=== PATIENT | male | born 1965 | race Caucasian/White ===

== ENCOUNTER 2019-06-02 01:54 | Inpatient (IN) ==
[2019-06-02] MEDS ORDERED: ONDANSETRON INJ 2 MG/ML 2 ML VIAL IV STA (03:09)
[2019-06-02] MEDS: HYDROmorphone INJ 1 MG/ML SYRINGE IV PRN (03:15)
[2019-06-02 03:18] LABS: Hemoglobin 13.1 g/dL (14.0-18.0); Mean Corpuscular Hemoglobin 25.9 pg (25-34); Mean Corpuscular Hgb Conc 32.8 g/dL (32-36); Mean Corpuscular Volume 79.2 fL (80-100); Mean Platelet Volume 11.2 fL (7.4-10.4); Platelet Count 171 K/uL (130-400); RDW Coefficient of Variation 14.5 % (11.5-14.5); RDW Standard Deviation 41.3 fL (36.4-46.3); Red Blood Count 5.05 M/uL (4.7-6.1)
[2019-06-02] MEDS: LACTATED RINGER'S 1,000 ML IV SCH ×3 (03:19→22:03)
[2019-06-02] MEDS ORDERED: ONDANSETRON INJ 2 MG/ML 2 ML VIAL IV PRN (03:19)
[2019-06-02 03:28] LABS: INR 1.1 (0.9-1.1); Prothrombin Time 10.8 Seconds (9.0-12.0)
[2019-06-02 03:37] LABS: BUN Creatinine Ratio 8.9 (10-20); Blood Urea Nitrogen 9 mg/dl (7-18); Calcium 8.9 mg/dl (8.5-10.1); Carbon Dioxide 24 mmol/L (21-32); Chloride 104 mmol/L (98-107); Est GFR (African American) 95.5; Est GFR (Non-African American) 82.4; Glucose 147 mg/dl (70-99); Potassium 3.7 mmol/L (3.5-5.1); Sodium 136 mmol/L (136-145)
--- NOTE | 2019-06-02 05:11 | Emergency Department Note ---
Entered by Paulino Srinivasan acting as a scribe for History of Present Illness General Chief complaint: Ankle Pain Stated complaint: ANKLE INJURY Time Seen by Provider: 06/02/19 02:00 Source: patient History of Present Illness Onset (ago): day(s) (this morning) Location: ankle (right) Pain Consistency: + constant Maximum Pain Intensity: 9 Associated symptoms: + other (Negative for knee pain, head pain, and neck pain.) The patient is a 54 year old male who presents to the emergency department with complaints of constant right ankle pain beginning this morning. Per , the patient was drinking alcohol tonight. The patient states that he had 8-12 draft beers tonight. He notes that the last beer that he had was an hour and a half ago and he reports that he last ate at 1700 yesterday. The patient states that the patient tripped and fell outside this morning, injuring his right ankle. He notes that he did not hit his head when he fell. He denies any knee pain, head pain, and neck pain. He reports that he has a history of diabetes and hypertension, and he states that he does not take any blood thinners. Home Medications Home Medications Medication Instructions Recorded Confirmed Type metformin 500 mg tablet,extended 2,000 mg PO QAM 90 Days #360 tab 01/02/19 06/02/19 Rx release 24 hr aspirin 81 mg tablet 81 mg PO DAILY tab 02/08/19 06/02/19 History omega-3 fatty acids 1,000 mg 1,000 mg PO QAM cap 02/08/19 06/02/19 History capsule pantoprazole 40 mg tablet,delayed 40 mg PO DAILY #90 tab 04/23/19 06/02/19 Rx release acyclovir 200 mg capsule 400 mg PO DAILY #60 cap 05/03/19 06/02/19 Rx enalapril maleate 5 mg tablet 5 mg PO DAILY #90 tab 05/07/19 06/02/19 Rx Allergies Allergy/AdvReac Type Severity Reaction Status Date / Time No Known Allergies Allergy Unknown Verified 01/29/04 17:07 [id number] Allergy Unknown Uncoded 08/22/02 20:19 Past Med/Surg History Medical History (Updated 06/02/19 @ 05:11 by Paulino Srinivasan) Diabetes Hypertension Right shoulder injury (Acute) Family History (Updated 01/31/19 @ 10:14 by Jax Mcdonald) Mother Myocardial infarction Diabetes Brother Diabetes Grandfather Diabetes Social History (Updated 01/31/19 @ 10:14 by Jax Mcdonald) Preferred Language: Irish Communication Ability: Effective Delivery Director Required: No Beliefs That Will Affect Care: None Current Living Situation: Spouse Other Information That Helps Us Care for You: No Feels Safe at Home: Yes Safety Concerns: Feels Safe At This Time Smoking Status: Never smoker Hx Alcohol Use: Yes Alcohol type: beer and hard liquor Review of Systems See HPI for pertinent positives & negatives. and A total of 10 systems reviewed and were otherwise negative Physical Exam Vital Signs Vital Signs - 24 hr 06/02/19 01:57 Temperature 36.6 C Temperature Source Oral Pulse Rate 104 H Respiratory Rate 20 Respiratory Depth Normal Blood Pressure 141/95 H Blood Pressure Mean 110 Pulse Oximetry 94 Oxygen Delivery Method Room Air Sepsis Recent Fever Within 48 Hours No Sepsis New/Unexplained Change in Mental Status No Sepsis Action Taken by Nursing No Action Required HEENT: Head - normocephalic and atraumatic. Pupils are equal, round, and reactive to light. Extraocular eye muscles are intact and sclera are anicteric. Nose - moist nasal mucosa without evidence of trauma or discharge. Mouth - moist buccal mucosa with no trauma to the teeth or signs of malocclusion. Neck: The neck is supple and there is no pain to palpation over the posterior cervical spine and no obvious step-offs or deformities. There is no JVD or tracheal deviation. Chest: There are no signs of deformities, contusions or abrasions to the chest wall. There is no obvious crepitus or paradoxical chest rise. Heart: Regular, rate, and rhythm. There is a normal S1 and S2 with no murmurs, clicks, or gallops appreciated. Lungs: Clear to auscultation bilaterally with no wheezes, rales, or rhonchi. Abdomen: Soft, completely nontender, nondistended, with good bowel sounds. There is no sign of trauma such as contusions, abrasions or penetrations. There are no palpable pulsatile masses or hepatosplenomegaly. There is no guarding, rigidity, or rebound noted. Pelvis: Stable to rock and compression. Extremities: No obvious contusions or edema. There are easily palpable peripheral pulses. Obvious deformity of the distal tib/fib, good sensation in the foot. Neuro: The patient is awake and alert and easily able to follow commands. Muscle strength is 5 out of 5 in all 4 extremities. Otherwise, neuro exam is unrema rkable. Course Course 0202: The patient was evaluated in room A12. His work boots were removed. A complete history and physical exam was performed. The patient declined wanting anything for pain. The patient will have plain films of the right tib-fib and right ankle. 0241: I reevaluated and updated the patient. I went over his X-Ray results. Dr. Rodas was paged. 0247: Upon reevaluation, the patient is stable. I discussed the findings and the treatment plan with the patient. He expresses agreement and understanding. I spoke with Dr. Rodas - Orth[place], [facility] The patient will be evaluated for further treatment. 0310: I reduced the patient's tibia fracture to a better alignment. He had Ortho-Glass splinting material applied. He had good pulses and sensation afterwards. He had an IV lock initiated and labs drawn as above in preparation to go to the OR Consultations Consultation #1: I reviewed the patient's case with Dr. Rodas - Orthopedic Surgery. He will evaluate the patient for further treatment Time: 02:47 Administered Medications Hydromorphone HCl (Dilaudid) 1 mg IV Q6 PRN PRN Reason: Pain Stop: 06/16/19 03:06 Last Admin: 06/02/19 03:15 Dose: 0.5 mg Documented by: [id number] Lactated Ringer's (Lr) 1,000 mls @ 100 mls/hr IV .Q10H KAIN Stop: 07/02/19 03:14 Last Admin: 06/02/19 03:19 Dose: 100 mls/hr Documented by: [id number] Discontinued Medications Ondansetron HCl (Zofran) 4 mg IV Q6 STA Stop: 06/02/19 03:10 Last Admin: 06/02/19 03:21 Dose: Not Given Documented by: [id number] Medical Decision Making Differential Diagnosis Differential diagnoses include: Tib/fib fracture, ankle fracture, and ankle dislocation. Medical Records Attestation: I reviewed the patient's medical records. Home Medications Current Medication List: was personally reviewed by me Laboratory Data Attestation: I reviewed the patient's lab results. Result diagrams: 06/02/19 03:10 06/02/19 03:10 Lab Results 06/02/19 Range/Units 03:10 WBC 8.90 (4.8-10.8) K/uL RBC 5.05 (4.7-6.1) M/uL Hgb 13.1 L (14.0-18.0) g/dL Hct 40.0 L (42-52) % MCV 79.2 L (80-100) fL MCH 25.9 (25-34) pg MCHC 32.8 (32-36) g/dL RDW Std Deviation 41.3 (36.4-46.3) fL RDW Coeff of Carisa 14.5 (11.5-14.5) % Plt Count 171 (130-400) K/uL MPV 11.2 H (7.4-10.4) fL Imaging Data Attestation: I personally reviewed and interpreted this imaging study as follows : My Impression: RIGHT LOWER EXTREMITY DISTAL TIBIA X-RAY: Distal tibia fracture ad distal fibula fracture. RIGHT ANKLE FRACTURE: Distal tibia fracture, no obvious ankle fracture. Blood Pressure Blood Pressure Findings: Elevated blood pressure Blood Pressure Disposition: elevated BP felt to be situational MDM Narrative The patient is a 54 year old male who presents to the emergency department with complaints of constant right ankle pain beginning this morning. The patient suffered a fall while at camp. He states that he slipped in the mud while leaving to go home. He had a tall work boot on his right foot and when he fell he had immediate pain just proximal to that boot in the lower portion of the tib-fib region. X-ray confirms a displaced fracture of the distal tibia and a proximal right fibular fracture. The patient had a moderate amount of alcohol this evening. I discussed the case with Dr. Rodas who will admit the patient to the hospital for further care. In the meantime, he suggested that I reduce the tibia fracture and place into Ortho-Glass splinting material. Impression & Plan Fracture of distal end of right tibia, Fracture of fibula, proximal, Fall, Alcohol intoxication Discharge Plan Visit Data *Final* Discharge Date/Time: 06/02/19 03:32 Chief Complaint: Ankle Pain Stated Complaint: ANKLE INJURY ED Provider: Nenita Domínguez Discharge Problem: Fracture of distal end of right tibia, Fracture of fibula, proximal, Fall, A lcohol intoxication Patient Disposition: Still a Patient Discharge Instructions Interventions: ED Discharge Assessment Last Done: 06/02/19 03:32 Discharge Problem: Fracture of distal end of right tibia Qualifiers: Encounter type: initial encounter Fracture type: closed Fracture morphology: unspecified fracture morphology Qualified Code(s): S82.301A - Unspecified fracture of lower end of right tibia, initial encounter for closed fracture Fracture of fibula, proximal Qualifiers: Encounter type: initial encounter Fracture type: closed Fracture morphology: unspecified fracture morphology Laterality: right Qualified Code(s): S82.831A - Other fracture of upper and lower end of right fibula, initial encounter for closed fracture Fall Qualifiers: Encounter type: initial encounter Qualified Code(s): W19.XXXA - Unspecified fall, initial encounter Alcohol intoxication Qualifiers: Complication of substance-induced condition: uncomplicated Qualified Code(s): F10.920 - Alcohol use, unspecified with intoxication, uncomplicated The scribe's documentation has been prepared under my direction and personally reviewed by me in its entirety. I confirm that the note above accurately reflects all work, treatment, procedures, and medical decision making performed by me.
--- NOTE | 2019-06-02 05:31 | XRay Report ---
XR tibia fibula RT 2V CLINICAL HISTORY: fall trauma. Pain. COMPARISON: None. DISCUSSION: Oblique comminuted fracture distal tibial shaft. There is moderate bony displacement at t he oblique component with hairline none displaced extensions to the distal tibia. There is a fracture of the proximal fibula. There is no evidence for soft tissue swelling. IMPRESSION: 1. Comminuted fracture distal tibial shaft. 2. Oblique fracture proximal fibular shaft. The above report was generated using voice recognition software. It may contain grammatical, syntax or spelling errors. Electronically signed by: Artem Doherty M.D. 06/02/2019 5:30 AM
--- NOTE | 2019-06-02 05:31 | XRay Report ---
XR ankle RT 2V CLINICAL HISTORY: fall pain COMPARISON: None. DISCUSSION: Oblique comminuted fracture of the distal tibial shaft. Hairline linear extension to the inferior aspect of the tibia. The remaining bony structures appear to be intact. Subtalar joint is intact. Moderate soft tissue sam ma IMPRESSION: Comminuted fracture distal tibial shaft as described. The above report was generated using voice recognition software. It may contain grammatical, syntax or spelling errors. Electronically signed by: Artem Doherty M.D. 06/02/2019 5:29 AM
--- NOTE | 2019-06-02 08:40 | History & Physical Report ---
Date of Service June 02, 2019 Assessment & Plan (1) Hypertension: Patient was admitted to my service with a fracture of the distal third right tibia. This was a closed injury neurosensory intact Plan: We will feed the patient today keep him n.p.o. after midnight. I discussed the definitive care with the patient and family he will be scheduled for an IM rodding of the right tibia. We will do the procedure on the at approximately 1 PM in the afternoon. Instructions precautions provided to the patient including time off of work. Present on Admission?: Yes (2) Diabetes: Medical management Present on Admission?: Yes (3) Fracture of distal end of right tibia: IM rodding (4) Alcohol intoxication: Medical management (5) Fall: (6) Fracture of fibula, proximal: (7) Tibia fracture: IM rodding of the right tibia History of Present Illness Patient was out ambulatory hunting trip fell suffered acute injury to his right lower extremity. He was brought in via emergency transport to the emergency room for treatment and stabilization. I was called at approximately 3 AM on the admitted the patient to my service. He had expert care in the emergency room probably splinted and protected Primary Care Provider: Pirece Springer MD Allergies Allergy/AdvReac Type Severity Reaction Status Date / Time No Known Allergies Allergy Unknown Verified 01/29/04 17:07 [id number] Allergy Unknown Uncoded 08/22/02 20:19 Home Medications Home Medications Medication Instructions Recorded Confirmed Type metformin 500 mg tablet,extended 2,000 mg PO QAM 90 Days #360 tab 01/02/19 06/02/19 Rx release 24 hr aspirin 81 mg tablet 81 mg PO DAILY tab 02/08/19 06/02/19 History omega-3 fatty acids 1,000 mg 1,000 mg PO QAM cap 02/08/19 06/02/19 History capsule pantoprazole 40 mg tablet,delayed 40 mg PO DAILY #90 tab 04/23/19 06/02/19 Rx release acyclovir 200 mg capsule 400 mg PO DAILY #60 cap 05/03/19 06/02/19 Rx enalapril maleate 5 mg tablet 5 mg PO DAILY #90 tab 05/07/19 06/02/19 Rx Past Med/Surg History Medical History (Updated 06/02/19 @ 08:38 by Hadley Rodas DO) Diabetes Hypertension Right shoulder injury (Acute) Family History (Updated 01/31/19 @ 10:14 by Jax Mcdonald) Mother Myocardial infarction Diabetes Brother Diabetes Grandfather Diabetes Social History (Updated 01/31/19 @ 10:14 by Jax Mcdonald) Preferred Language: Monegasque Communication Ability: Effective Charge Histotechnologist Required: No Beliefs That Will Affect Care: None Current Living Situation: Spouse Other Information That Helps Us Care for You: No Feels Safe at Home: Yes Safety Concerns: Feels Safe At This Time Smoking Status: Never smoker Hx Alcohol Use: Yes Alcohol type: beer and hard liquor Review of Systems Review of Systems: Denies any fever sweats chills Ear, Nose, Mouth, Throat: Denies any ear nose and throat complaints Denies any chest pain shortness of breath palpitations negative Denies nausea vomiting urgency frequency His only positive review is muscle skeletal lower extremity difficult Physical Exam Physical Exam: Pupils react to light and accommodation. Ear nose and throat clear Lungs clear to auscultation no rales rhonchi wheezing Abdomen soft and nontender. Cardiac normal S1-S2 no S3 Cardiovascular: Normal rate and rhythm with no ectopy Skin: Skin is intact no brachia skin no warmth erythema good circulation Lower extremity well aligned Results & Data Vital Signs (Past 12 Hours) Vital Signs Temp Pulse Pulse Resp BP BP BP 06/02/19 07:50 36.7 C 94 H 18 148/88 H 06/02/19 03:51 36.8 C 95 H 20 148/99 H 06/02/19 03:22 91 H 18 132/90 06/02/19 03:04 97 H 18 175/104 H 06/02/19 01:57 36.6 C 104 H 20 141/95 H Pulse Ox 06/02/19 07:50 95 06/02/19 03:51 96 06/02/19 03:22 93 06/02/19 03:04 96 06/02/19 01:57 94 Code Status & VTE Plan VTE Prophylaxis Plan VTE Prophylaxis will be ordered: No PG Care Time/CCT Total # of Minutes Spent Total Time Spent with Patient: Total time spent is greater than 50% in coordination of care (as documented) at patient's floor/unit and/or counseling patient: (1) Fracture of distal end of right tibia Encounter type: initial encounter Fracture morphology: unspecified fracture morphology Fracture type: closed Qualified Code(s): S82.301A - Unspecified fracture of lower end of right tibia, initial encounter for closed fracture (2) Alcohol intoxication Complication of substance-induced condition: uncomplicated Qualified Code(s): F10.920 - Alcohol use, unspecified with intoxication, uncomplicated (3) Fall Encounter type: initial encounter Qualified Code(s): W19.XXXA - Unspecified fall, initial encounter (4) Fracture of fibula, proximal Encounter type: initial encounter Fracture morphology: unspecified fracture morphology Fracture type: closed Laterality: right Qualified Code(s): S82. 831A - Other fracture of upper and lower end of right fibula, initial encounter for closed fracture
[2019-06-02] MEDS: KETOROLAC 30 MG/ML VIAL IV SCH ×3 (09:23→21:56)
[2019-06-02] MEDS ORDERED: GLUCOSE 40% GEL 15 GM TUBE PO PRN (09:38)
[2019-06-02] MEDS ORDERED: CARBOHYDRATES FOR HYPOGLYCEMIA PO PRN (09:38)
[2019-06-02] MEDS ORDERED: DEXTROSE 50% 50 ML SYRINGE IV PRN (09:38)
[2019-06-02] MEDS ORDERED: GLUCOSE 10 TABS/TUBE PO PRN (09:38)
[2019-06-02] MEDS ORDERED: GLUCAGON FOR INJ 1 MG VIAL SQ PRN (09:38)
[2019-06-02] MEDS ORDERED: ENALAPRIL MALEATE 5 MG TAB PO SCH (09:45)
[2019-06-02] MEDS: OMEGA-3 (PURIFIED FISH OIL) 1 GM CAP PO SCH (10:15)
[2019-06-02] MEDS: ACYCLOVIR 200 MG CAP PO SCH (10:16)
[2019-06-02] MEDS: PANTOprazole 40 MG TAB PO SCH (11:59)
[2019-06-02] MEDS: OXYCODONE/ACETAMINOPHEN 10-325 TAB PO PRN ×2 (12:02→19:56)
[2019-06-02] MEDS: INSULIN ASPART 100 UNITS/ML 3 ML PEN SC SCH ×3 (12:54→21:53)
--- NOTE | 2019-06-02 13:11 | Hospitalist Consultation ---
Date of Consultation June 02, 2019 Assessment & Plan (1) Fracture of distal end of right tibia: * Patient admitted for closed comminuted fracture of distal RIGHT tibia and oblique fracture of proximal fibular shaft following a mechanical fall after consumption of 8-12 beers. * NPO after midnight per ortho service * Scheduled for IM rodding of R tibia on 06/[address] Rodas * Pain management/PT/OT/DVT prophylaxis per primary * IVFs for hydration * Holding aspirin from home * Patient able to climb flight of steps without difficulty; able to achieve 4 METS without chest pain. He has no significant cardiac history and is never had to have a stress test. Diabetes well controlled on metformin alone, no insulin. EKG with occasional PVCs and PACs, without ischemic changes. Carotids without stenosis/bruit on exam. Coagulation studies without abnormality. * Patient is at average perioperative cardiovascular risk for intermediate risk procedure. Acceptable to proceed with planned intervention as above by Ortho. (2) Fracture of fibula, proximal: * As above, orthopedic management (3) Hypertension: * Elevated, but stable at 148/88 * Patient given morning dose of enalapril 5mg -- will hold tonight for OR in AM * Continue to monitor (4) Diabetes: Well-controlled, hemoglobin A1c 6.5% on recent labs With some mild hyperglycemia here secondary to stress reaction -Hold metformin from home -will give supplemental insulin -Accu-Cheks q. before meals at bedtime -ADA diet (5) Alcohol intoxication: * ethyl alcohol 108 on admission -- pt had 8-12 beers day night prior to fall * Patient states he only drinks in excess during hunting season and rarely even on the weekends outside of hunting season - no evidence of etoh withdrawal at this time * Monitor for s/sx of DT (6) Hypertriglyceridemia: * Patient previously on fenofibrate and gemfibrizol, with triglycerides 545 in May 2018 -- patient developed rash and was subsequently taken off these medications * Since that time, patient with increased exercise and dietary changes, improved control diabetes * Most recent lipid profile February 2019 -- triglycerides 193, Cholesterol 155- LDL 89, HDL 39 (7) Anemia: * NEW upon admission with hemoglobin of 13.1, microcytic, down from hemoglobin is 16.5 in 05/2018. MCV 79.2 * Some of the anemia may be from some acute blood loss from the tibial fracture, but could be from a GI source * Had a colonoscopy 6 months ago which was normal, but has significant GERD requiring daily PPI and has symptoms if misses 1 dose-last EGD 6 years ago * Recommend follow-up with GI as an outpatient for repeat EGD to look for source of iron deficiency * Holding aspirin from home for now for surgery-consider stopping upon discharge at least temporarily until source of microcytic anemia is found * Check iron studies in AM, check fecal occult blood * Follow CBC (8) GERD (gastroesophageal reflux disease): * Continue home Protonix 40mg * Needs repeat EGD as above given microcytic anemia upon admission (9) Herpetic mag: * No acute flare * Continue home daily acyclovir (10) DVT prophylaxis: * Per primary Dispo: patient to OR in AM with Dr. Rodas for IM sixto Supervising Physician Co-Signing Physician Notes PA Supervision Note: I personally saw and examined the patient. I verified all anderson points and agree with LISETTE Corral with the following exceptions and/or additions: Patient having pain in the right leg, otherwise feeling well. Denies chest pain ever or with exertion. He is easily able to climb a flight of stairs up and down prior to to his fall and fracture. He has never had any cardiac issues in the past. He has never had to have a stress test. Denies any new pains anywhere else. He has chronic pains in his shoulder on the right from a previous fracture, has chronic neck and back pain. History reviewed as above ROS as above Vitals reviewed Gen: AAOx3, NAD HEENT: Anicteric sclerae, EOMI CV: RRR no mgr nl S1S2 Pulm: CTAB no wcr Abd: +BS soft NT ND no masses or hernias Ext: Right leg in splint, did not remove the splint, good cap refill in the right toes, 2+ dorsalis pedis and posterior tibialis pulse on the left Skin: No rashes, warm/dry Neuro: Full strength throughout 54-year-old male with history as above, here after mechanical fall resulting in right tib/fib fracture that is comminuted -For surgical management tomorrow Medical preoperative assessment as above -We will follow along History of Present Illness Attending Physician: Hadley Rodas, History of Present Illness 54 year old white male with PMH significant for DM, HTN, acid reflux, dyslipidemia, herpetic mag presented with complaints of right ankle pain after being at hunting camp and having between 8-12 beers. He states he tripped this morning but denies head trauma or LOC. He was found in the ER to have a comminuted fracture of the right distal tibial shaft as well as an oblique fracture of the right proximal fibula. He was set in a splint in the ER and admitted by orthopedics. Hospitalist service is consulted for medical management and preoperative medical assessment. He states he has had some upper respiratory congestion for the past two weeks with occasional productive cough of green sputum. His was sick recently, and she states at bedside that her cough and symptoms were fever similar and lasted four weeks. He has been taking sophia seltzer dissolving tablets over the past week without much improvement of symptoms. The patient denies any chest pain or shortness of breath. He states he currently feels warm, but he states he usually sleeps with a fan at night and would like one during his stay as well. They deny having an air conditioner running currently or recent exposure. He denies excessive alcohol use outside of hunting season, and states he might have a beer or two during a months time outside of hunting camp. He does have a significant family history for HTN and DM, with his mother passing at the age of 48 from a massive MO due to complications from diabetes. She also had HTN and kidney disease. The patients brother also has diabetes and has been on insulin since he was 20. His father is still alive and well, but he does not go to the doctor. 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 During that time, he developed recurrent infections in the region of the lateral aspect of his right thumb, which was eventually diagnosed as herpetic mag and placed on daily acyclovir. He states this developed after cleaning up bottle at camp while placing his thumbs in the tops and someone had a cold sore. Allergies Allergy/AdvReac Type Severity Reaction Status Date / Time fenofibrate AdvReac Mild rash Unverified 06/02/19 13:25 gemfibrozil AdvReac Mild rash Unverified 06/02/19 13:25 [id number] Allergy Unknown Uncoded 08/22/02 20:19 Home Medications Home Medications Medication Instructions Recorded Confirmed Type metformin 500 mg tablet,extended 2,000 mg PO QAM 90 Days #360 tab 01/02/19 06/02/19 Rx release 24 hr aspirin 81 mg tablet 81 mg PO DAILY tab 02/08/19 06/02/19 History omega-3 fatty acids 1,000 mg 1,000 mg PO QAM cap 02/08/19 06/02/19 History capsule pantoprazole 40 mg tablet,delayed 40 mg PO DAILY #90 tab 04/23/19 06/02/19 Rx release acyclovir 200 mg capsule 400 mg PO DAILY #60 cap 05/03/19 06/02/19 Rx enalapril maleate 5 mg tablet 5 mg PO DAILY #90 tab 05/07/19 06/02/19 Rx Patient History Medical History Diabetes Dyslipidemia GERD (gastroesophageal reflux disease) Herpetic mag Hypertension Olecranon bursitis Right shoulder injury (Acute) Surgical History History of elbow surgery Family History Mother Myocardial infarction, Onset Age: 48 at age 48 Diabetes Hypertension Kidney disease Brother Diabetes, Onset Age: 20 on insulin Grandfather Diabetes Social History Preferred Language: Chadian Communication Ability: Effective Distribution Analyst Required: No Beliefs That Will Affect Care: None marital status: Current Living Situation: Spouse current occupational status: employed current occupation: 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 miner- 27 years Other Information That Helps Us Care for You: No Feels Safe at Home: Yes Safety Concerns: Feels Safe At This Time Smoking Status: Never smoker Hx Alcohol Use: Yes Alcohol type: beer and hard liquor Alcohol type Comment: typically only increased intake 8-10 beers during hunting season Hx Substance Use: No Review of Systems Constitutional: + fever and + body aches Eyes: no diplopia and no tunnel vision Ear, Nose, Mouth, Throat: no tinnitus, no dizziness and no dysphagia Respiratory: + cough and + chest congestion (white/yellow sputum); no dyspnea and no dyspnea on exertion Cardiovascular: no chest pain, no radiating jaw, neck or arm pain, no palpitations and no edema Gastrointestinal: no abdominal pain, no nausea, no vomiting, no constipation and no diarrhea/loose stools Genitourinary: no dysuria, no hematuria and no flank pain Musculoskeletal: no back pain and no swelling Right ankle pain Integumentary: no rash and no lesions Neurologic: + falls (this morning); no numbness and no paresthesia Psychiatric: no anxiety and no confusion Endocrine: no polydipsia and no polyphagia Hematologic / Lymphatic: no easy bleeding and no coagulopathy Allergy / Immunological: no itchy eyes and no seasonal rhinorrhea Physical Exam Constitutional: WD/WN, vitals as above no acute distress Eyes: PERRL, conjunctivae normal, anicteric sclerae ENMT: posterior pharynx erythema Neck: trachea midline, no thyromegaly Respiratory: normal respiratory effort, lungs clear to auscultation Cardiovascular: RRR, no murmur, no edema Gastrointestinal (Abdomen): normal bowel sounds, soft, nontender, no hepatosplenomegaly Musculoskeletal: no cyanosis or clubbing. Splint to RLE -- sensation intact neurovascularly Skin: no rashes, warm and dry Neurologic: PERRL, EOMI, accommodation nl, no face palsy, no dysarthria Psychiatric: A+Ox3, euthymic affect Lymphatic: no cervical or axillary lymphadenopathy Results & Data Vital Signs (Past 12 Hours) Vital Signs Temp Pulse Pulse Resp BP BP BP 06/02/19 07:50 36.7 C 94 H 18 148/88 H 06/02/19 03:51 36.8 C 95 H 20 148/99 H 06/02/19 03:22 91 H 18 132/90 06/02/19 03:04 97 H 18 175/104 H 06/02/19 01:57 36.6 C 104 H 20 141/95 H Pulse Ox 06/02/19 07:50 95 06/02/19 03:51 96 06/02/19 03:22 93 06/02/19 03:04 96 06/02/19 01:57 94 Laboratory Results 06/02/19 06/02/19 06/02/19 Range/Units 12:53 03:26 03:10 WBC (4.8-10.8) K/uL RBC (4.7-6.1) M/uL Hgb (14.0-18.0) g/dL Hct (42-52) % MCV (80-100) fL MCH (25-34) pg MCHC (32-36) g/dL RDW Std Deviation (36.4-46.3) fL RDW Coeff of Carisa (11.5-14.5) % Plt Count (130-400) K/uL MPV (7.4-10.4) fL PT (9.0-12.0) Seconds INR (0.9-1.1) Sodium (136-145) mmol/L Potassium (3.5-5.1) mmol/L Chloride (98-107) mmol/L Carbon Dioxide (21-32) mmol/L Anion Gap (3-11) BUN (7-18) mg/dl Creatinine (0.6-1.4) mg/dl Est Cr Clr Drug Dosing Est GFR ( Amer) Est GFR (Non-Af Amer) BUN/Creatinine Ratio (10-20) Glucose (70-99) mg/dl POC Glucose 207 H (70-99) Estimat Average Glucose Pending Hemoglobin A1c Pending Calcium (8.5-10.1) mg/dl Ethyl Alcohol mg/dL 108.0 H (0-3) mg/dl 06/02/19 06/02/19 06/02/19 Range/Units 03:10 03:10 03:10 WBC 8.90 (4.8-10.8) K/uL RBC 5.05 (4.7-6.1) M/uL Hgb 13.1 L (14.0-18.0) g/dL Hct 40.0 L (42-52) % MCV 79.2 L (80-100) fL MCH 25.9 (25-34) pg MCHC 32.8 (32-36) g/dL RDW Std Deviation 41.3 (36.4-46.3) fL RDW Coeff of Carisa 14.5 (11.5-14.5) % Plt Count 171 (130-400) K/uL MPV 11.2 H (7.4-10.4) fL PT 10.8 (9.0-12.0) Seconds INR 1.1 (0.9-1.1) Sodium 136 (136-145) mmol/L Potassium 3.7 (3.5-5.1) mmol/L Chloride 104 (98-107) mmol/L Carbon Dioxide 24 (21-32) mmol/L Anion Gap 8.0 (3-11) BUN 9 (7-18) mg/dl Creatinine 1.02 (0.6-1.4) mg/dl Est Cr Clr Drug Dosing Not Reportable Est GFR ( Amer) 95.5 Est GFR (Non-Af Amer) 82.4 BUN/Creatinine Ratio 8.9 L (10-20) Glucose 147 H (70-99) mg/dl POC Glucose (70-99) Estimat Average Glucose Hemoglobin A1c Calcium 8.9 (8.5-10.1) mg/dl Ethyl Alcohol mg/dL (0-3) mg/dl PG Care Time/CCT Total # of Minutes Spent Total Time Spent with Patient: Total time spent is greater than 50% in coordination of care (as documented) at patient's floor/unit and/or counseling patient: (1) Alcohol intoxication Complication of substance-induced condition: uncomplicated Qualified Code(s): F10.920 - Alcohol use, unspecified with intoxication, uncomplicated (2) Fracture of distal end of right tibia Encounter type: initial encounter Fracture morphology: unspecified fracture morphology Fracture type: closed Qualified Code(s): S82.301A - Unspecified fracture of lower end of right tibia, initial encounter for closed fracture (3) Fracture of fibula, proximal Encounter type: initial encounter Fracture morphology: unspecified fracture morphology Fracture type: closed Laterality: right Qualified Code(s): S82.831A - Other fracture of upper and lower end of right fibula, initial encounter for closed fracture
[2019-06-02 15:02] LABS: Basophils # (auto) 0.05 K/uL (0-0.2); Basophils % (auto) 0.5 %; Eosinophils # (auto) 0.11 K/uL (0-0.5); Eosinophils % (auto) 1.1 %; Immature Granulocytes # (auto) 0.06 K/uL (0.00-0.02); Immature Granulocytes % (auto) 0.6 %; Lymphocytes # (auto) 1.43 K/uL (1.2-3.4); Lymphocytes % (auto) 14.7 %; Monocytes % (auto) 8.2 %; Neutrophils % (auto) 74.9 %
--- NOTE | 2019-06-02 15:04 | XRay Report ---
XR chest 1V portable CLINICAL HISTORY: cough x 2 weeks dyspnea COMPARISON STUDY: No previous studies for comparison. FINDINGS: The bones soft tissues and hemidiaphragms are normal. The cardiomediastinal silhouette is n ormal. The lungs are clear. The pulmonary vasculature is normal. IMPRESSION: Negative chest. The above report was generated using voice recognition software. It may contain grammatical, syntax or spelling errors. Electronically signed by: Artem Doherty M.D. 06/02/2019 3:02 PM
[2019-06-03] MEDS: KETOROLAC 30 MG/ML VIAL IV SCH ×4 (02:48→19:28)
[2019-06-03] MEDS ORDERED: Nursing to Pharmacy Communication ONE (03:04)
[2019-06-03 05:50] LABS: Basophils # (auto) 0.04 K/uL (0-0.2); Basophils % (auto) 0.4 %; Eosinophils # (auto) 0.31 K/uL (0-0.5); Eosinophils % (auto) 3.2 %; Hematocrit (blood only) 37.4 % (42-52); Hemoglobin 12.1 g/dL (14.0-18.0); Immature Granulocytes # (auto) 0.05 K/uL (0.00-0.02); Immature Granulocytes % (auto) 0.5 %; Lymphocytes # (auto) 1.91 K/uL (1.2-3.4); Lymphocytes % (auto) 19.5 %; Mean Corpuscular Hemoglobin 26.3 pg (25-34); Mean Corpuscular Hgb Conc 32.4 g/dL (32-36); Mean Corpuscular Volume 81.3 fL (80-100); Mean Platelet Volume 11.8 fL (7.4-10.4); Monocytes # (auto) 1.02 K/uL (0.11-0.59); Monocytes % (auto) 10.4 %; Neutrophils # (auto) 6.48 K/uL (1.4-6.5); Platelet Count 163 K/uL (130-400); RDW Coefficient of Variation 14.8 % (11.5-14.5); RDW Standard Deviation 43.8 fL (36.4-46.3); White Blood Count 9.81 K/uL (4.8-10.8)
[2019-06-03 05:53] LABS: Estimated Average Glucose 146 mg/dl; Hemoglobin A1C 6.7 % (4.5-5.6)
[2019-06-03] MEDS: HYDROmorphone INJ 1 MG/ML SYRINGE IV PRN ×4 (06:00→18:09)
[2019-06-03 06:06] LABS: INR 1.1 (0.9-1.1); Prothrombin Time 10.8 Seconds (9.0-12.0)
[2019-06-03] MEDS: INSULIN ASPART 100 UNITS/ML 3 ML PEN SC SCH ×4 (06:10→21:11)
[2019-06-03 06:17] LABS: BUN Creatinine Ratio 8.6 (10-20); Calcium 8.4 mg/dl (8.5-10.1); Creatinine Clr Calc Pharmacy 103.1 ml/min; Est GFR (African American) 100.2; Est GFR (Non-African American) 86.4; Potassium 3.7 mmol/L (3.5-5.1)
[2019-06-03] MEDS: LACTATED RINGER'S 1,000 ML IV SCH ×3 (07:37→19:35)
[2019-06-03] MEDS ORDERED: HYDROmorphone INJ 1 MG/ML SYRINGE IV PRN (11:29)
--- NOTE | 2019-06-03 13:43 | Hospitalist Progress Note ---
Date of Service June 03, 2019 Assessment & Plan (1) Fracture of distal end of right tibia: - Closed comminuted fx of R distal tibia and oblique fx of proximal fibular shaft due to mechanical fall - Planning on surgical intervention this afternoon with Dr. Rodas - surgical management per primary - ASA on hold Surgical Clearance: Patient able to climb flight of steps without difficulty; able to achieve 4 METS without chest pain. He has no significant cardiac history and has never had to have a stress test. Diabetes well controlled on metformin alone, no insulin. EKG with occasional PVCs and PACs, without ischemic changes. Coagulation studies without abnormality; does have FMHx of mother with fatal OK at 48 - reporting poorly controlled DM contributing * Patient is at average perioperative cardiovascular risk for intermediate risk procedure. Acceptable to proceed with planned intervention as above by Ortho. (2) Fracture of fibula, proximal: - As above, orthopedic management (3) Hypertension: - Mildly elevated but stable - 140 systolics - Enalapril on hold pending surgical intervention; likely can be resumed tomorrow (4) Diabetes: - Well-controlled; A1c 6.5 - Hold Metformin and given SSI; can return on home medications on D/C (5) Alcohol intoxication: - Ethyl alcohol 108 on admission - reports 8-12 beers prior to fall - Denies heavy chronic use - mostly drinks with hunting season - no withdrawal signs (6) Hypertriglyceridemia: - Previously on fenofibrate and gemfibrizol - developed rash on taken on medications - Patient reports increased exercise and dietary changes; has controlled DM - Continued outpatient monitoring (7) Anemia: - Rather new finding in comparison to previous labs - Hgb 12.1 currently and partially some dilution - Possibly this is acute blood loss due to fracture - Had colonoscopy x 6 months ago which was normal; has significant GERD with last EGD 6 years ago - Can F/U with GI for possible repeat EGD as outpatient - labs with low end MCV but it is normal today - iron panel WNL - can be followed as outpatient - Fecal occult blood ordered for testing (8) GERD (gastroesophageal reflux disease): - Continue Protonix 40 mg daily (9) Herpetic mga: - No exacerbation - Continue Acyclovir 400 mg daily (10) DVT prophylaxis: - Per primary pending surgery Disposition: Planning on OR today; hospitalists will continue to follow Subjective Reports feeling well today. Continues to have intermittent pain of his leg. Anticipated surgical intervention around 1:00. Verbalizes no complaints at this time Review of Systems Constitutional: no fever and no chills Respiratory: no cough and no dyspnea Cardiovascular: no chest pain and no palpitations Gastrointestinal: no abdominal pain, no nausea, no vomiting, no constipation and no diarrhea/loose stools Genitourinary: no dysuria Musculoskeletal: R lower leg pain Integumentary: no rash Neurologic: no tingling and no numbness Psychiatric: no anxiety and no substance abuse Physical Exam Constitutional: WD/WN, vitals as above Eyes: + anicteric sclerae ENMT: Ears: no hearing impairment Mouth: oral mucous membranes not dry Neck: trachea midline Respiratory: normal respiratory effort, lungs clear to auscultation Cardiovascular: RRR, no murmur, no edema Gastrointestinal (Abdomen): Inspection/Auscultation: normal bowel sounds Percussion/Palpation: abdomen soft; abdomen nontender Musculoskeletal: Head/Neck/Chest: normocephalic and head atraumatic RLE with splint placed; immediate cap refill Skin: no rashes, warm and dry Neurologic: moves all extremities Psychiatric: A+Ox3, euthymic affect Results & Data Vital Signs (Past 12 Hours) Vital Signs Temp Pulse Resp BP Pulse Ox 06/03/19 11:44 36.7 C 58 L 14 155/90 H 94 06/03/19 07:38 36.9 C 66 14 144/92 H 93 PG Care Time/CCT Total # of Minutes Spent Total Time Spent with Patient: Total time spent is greater than 50% in coordination of care (as documented) at patient's floor/unit and/or counseling patient: (1) Alcohol intoxication Complication of substance-induced condition: uncomplicated Qualified Code(s): F10.920 - Alcohol use, unspecified with intoxication, uncomplicated (2) Fracture of distal end of right tibia Encounter type: initial encounter Fracture morphology: unspecified fracture morphology Fracture type: closed Qualified Code(s): S82.301A - Unspecified fracture of lower end of right tibia, initial encounter for closed fracture (3) Fracture of fibula, proximal Encounter type: initial encounter Fracture morphology: unspecified fracture morphology Fracture type: closed Laterality: right Qualified Code(s): S82.831A - Other fracture of upper and lower end of right fibula, initial encounter for closed fracture
[2019-06-03] MEDS ORDERED: LIDOCAINE HCL 2% 2 ML VIAL/AMP(20MG/ML) INFIL ONE (14:10)
[2019-06-03] MEDS ORDERED: fentaNYL citrate 100 MCG/2 ML VIAL ONE ×3 (14:10→15:32)
[2019-06-03] MEDS ORDERED: PROPOFOL IV EMULSION 10 MG/ML 20 ML VIAL IV ONE (14:10)
[2019-06-03] MEDS ORDERED: MIDAZOLAM HCL 1 MG/ML 2ML VIAL ONE (14:11)
--- NOTE | 2019-06-03 14:21 | History & Physical Bridge Note ---
Date of Service June 03, 2019 History & Physical Bridge Note I have examined the patient, reviewed the History & Physical and in the interval since the performance of the History & Physical I have noted the following changes of clinical significance: no changes noted
--- NOTE | 2019-06-03 14:37 | Anesthesiology Consultation ---
Date of Service June 03, 2019 Assessment & Plan Chart Review Chart Review: Acceptable Risk for Surgery and Patient NOT seen in Pre Admission Testing Consults Requested none ASA ASA3 Proposed Anesthesia Anesthesia Type: General Risk / Benefits Reviewed With: PT / POA / Parent / Guardian, Accepts Plan and Informed Consent Obtained History Surgery Operation Date: 06/03/19 08:20 Proposed Procedures p Right Tibia Intramedullary Nail - Hadley Rodas, Height/Weight Height: 5 ft 9 in Weight: 107.983 kg Allergies Allergy/AdvReac Type Severity Reaction Status Date / Time fenofibrate AdvReac Mild rash Unverified 06/02/19 13:25 gemfibrozil AdvReac Mild rash Unverified 06/02/19 13:25 [id number] Allergy Unknown Uncoded 08/22/02 20:19 Medications Home Medications Medication Instructions Recorded Confirmed Last Taken metformin 500 mg tablet,extended 2,000 mg PO QAM 90 Days #360 tab 01/02/19 06/02/19 Unknown release 24 hr aspirin 81 mg tablet 81 mg PO DAILY tab 02/08/19 06/02/19 Unknown omega-3 fatty acids 1,000 mg 1,000 mg PO QAM cap 02/08/19 06/02/19 Unknown capsule pantoprazole 40 mg tablet,delayed 40 mg PO DAILY #90 tab 04/23/19 06/02/19 Unknown release acyclovir 200 mg capsule 400 mg PO DAILY #60 cap 05/03/19 06/02/19 Unknown enalapril maleate 5 mg tablet 5 mg PO DAILY #90 tab 05/07/19 06/02/19 Unknown Active Medications Generic Name Dose Route Start Last Admin Trade Name Billq PRN Reason Stop Dose Admin Acyclovir 400 mg 06/02/19 09:45 06/02/19 10:16 Zovirax PO 07/02/19 09:44 400 mg DAILY KAIN Administration Enalapril Maleate 5 mg 06/02/19 09:45 06/02/19 10:16 Vasotec PO 07/02/19 09:44 5 mg QAM KAIN Administration Fish Oil 1 gm 06/02/19 10:00 06/02/19 10:15 [place]-3 (Purified Fish Oil) PO 07/02/19 09:59 1 gm QAM KAIN Administration Hydromorphone HCl 1 mg 06/03/19 11:29 06/03/19 11:35 Dilaudid IV 06/16/19 03:06 1 mg Q4 PRN Administration Pain Lactated Ringer's 1,000 mls @ 100 mls/hr 06/02/19 03:15 06/03/19 07:37 Lr IV 07/02/19 03:14 100 mls/hr .Q10H KAIN Administration Insulin Aspart 0 units 06/03/19 06:00 06/03/19 12:11 Novolog Flexpen SC 07/03/19 05:59 Not Given Q6 KAIN Ketorolac Tromethamine 30 mg 06/02/19 09:00 06/03/19 08:35 Toradol IV 06/07/19 08:59 30 mg Q6H KAIN Administration Oxycodone/Acetaminophen 2 tab 06/02/19 08:40 06/02/19 19:56 Percocet 10/325mg PO 06/16/19 08:39 2 tab Q4H PRN Administration Pain Pantoprazole Sodium 40 mg 06/02/19 10:15 06/02/19 11:59 Protonix PO 07/02/19 10:14 40 mg QAM KAIN Administration NPO Date Last Intake of Fluids: 06/02/19 Time Last Intake of Fluids: 23:55 Date Last Intake of Solids: 06/02/19 Time Last Intake of Solids: 17:00 Past Medical History Medical History Diabetes Dyslipidemia GERD (gastroesophageal reflux disease) Herpetic mag Hypertension Olecranon bursitis Right shoulder injury (Acute) Exercise / Class Metabolic Activity II 4-5 Yardwork/Stairs/Walk up hill Past Family History Family History Mother Myocardial infarction, Onset Age: 48 at age 48 Diabetes Hypertension Kidney disease Brother Diabetes, Onset Age: 20 on insulin Grandfather Diabetes Past Surgical History Surgical History History of elbow surgery Past Anesthesia History No Hx of Anesthesia Complications and No Family Hx of Anesthesia Complications History of PONV No Hx of PONV and No Hx of Motion Sickness Social History Smoking Status: Never smoker Hx Alcohol Use: Yes Alcohol type: beer and hard liquor alcohol intake frequency: a few times a week Hx Substance Use: No Physical Exam Vital Signs Last Vital Signs Temp 36.7 C 06/03/19 13:45 Pulse 74 06/03/19 13:45 Resp 16 06/03/19 13:45 BP 149/109 H 06/03/19 13:45 Pulse Ox 95 06/03/19 13:45 Constitutional + obese ENMT Mouth: + small oral opening; no dentition abnormality Thyromental Distance: < 3.5 Finger Breadths Mallampati Class: III Neck normal visual inspection and trachea midline; neck extension not limited Respiratory normal respiratory effort Auscultation: lungs clear to auscultation bilaterally Cardiovascular Rate/Rhythm: regular rate and regular rhythm Heart Sounds: no murmur Vessels: no carotid bruit Musculoskeletal Spine: normal cervical ROM Neurologic moves all extremities Motor/Sensory: no sensory deficit Psychiatric Orientation: alert and oriented x 3 Testing Laboratory Results 06/03/19 05:17 06/03/19 05:17 PT 10.8 Seconds (9.0-12.0) 06/03/19 05:17 INR 1.1 (0.9-1.1) 06/03/19 05:17 Hemoglobin A1c 6.7 % (4.5-5.6) H 06/02/19 03:10 06/03/19 06/03/19 12:04 05:49 POC Glucose 119 H 140 H Electrocardiogram Date: 06/02/19 SR at 77 w/PAC's Chest X-Ray Date: 06/02/19 Findings: + NAD
[2019-06-03] MEDS ORDERED: FLUMAZENIL 0.1 MG/1 ML 10 ML VIAL IV PRN (14:47)
[2019-06-03] MEDS ORDERED: ONDANSETRON INJ 2 MG/ML 2 ML VIAL IV PRN (14:47)
[2019-06-03] MEDS ORDERED: PROMETHAZINE HCL 12.5 MG in SODIUM CHLORIDE 0.9% 50 ML IV PRN (14:47)
[2019-06-03] MEDS ORDERED: NALOXONE HCL 0.4 MG/1 ML VIAL/CARP IV PRN ×2 (14:47→19:06)
[2019-06-03] MEDS ORDERED: ePHEDrine sulfate 50 MG/ML AMP IV PRN (14:47)
[2019-06-03] MEDS ORDERED: ATROPINE SULFATE 0.1 MG/ML 10ML SYR IV PRN (14:47)
[2019-06-03] MEDS ORDERED: LABETALOL HCL IV 5 MG/ML 20ML IV PRN (14:47)
[2019-06-03] MEDS ORDERED: CEFAZOLIN 250 MG/ML 1 GM VIAL ONE (15:00)
[2019-06-03] MEDS ORDERED: BACITRACIN INJ 50,000 UNIT VIAL ONE (15:00)
[2019-06-03] MEDS ORDERED: DEXAMETHASONE SOD INJ 4 MG/ML VIAL ONE (15:22)
[2019-06-03] MEDS ORDERED: ePHEDrine sulfate 50 MG/ML SYR ONE (15:22)
[2019-06-03] MEDS ORDERED: ONDANSETRON INJ 2 MG/ML 2 ML VIAL ONE (15:22)
[2019-06-03] MEDS ORDERED: CEFAZOLIN 2000MG 2,000 MG/15 ML SYR IV ONE (15:33)
--- NOTE | 2019-06-03 17:17 | Fluoroscopy Report ---
INTRAOPERATIVE RADIOGRAPHS CLINICAL HISTORY: Open reduction and internal fixation of the right tibia. Fluoroscopy time: 74 seconds. FINDINGS: 6 spot fluoroscopic views of the right tibia are correlated with radiographs dated 06/02/20 19. There has been intramedullary nail fixation of a comminuted distal tibial fracture with restorati on of near-anatomic alignment. There is only mild offset of the fragments. A single cortical lag scre w transfixes the proximal end of the nail and 2 cortical lag screws transfix the distal end of the na il. Overlying soft tissue edema and skin clips are noted. A mildly distracted proximal fibular fractu re is also noted. IMPRESSION: Intraoperative images from open reduction and internal fixation of the right tibia as abo ve. Electronically signed by: Imtiaz Sanz M.D. 06/03/2019 5:15 PM
--- NOTE | 2019-06-03 17:22 | Post Operative Brief Note ---
PG Immediate Post Op with CF Date of Surgery June 03, 2019 Pre & Post Diagnosis Operation Date: 06/03/19 08:20 Pre-Op Diagnosis: RIGHT TIBIA, FIBULA FRACTURE Post-Op Diagnosis: RIGHT TIBIA, FIBULA FRACTURE I identified the patient and participated in the time-out.: Yes Procedure Operation Date: 06/03/19 08:20 Actual Procedures p Right Tibia Intramedullary Nail(Right) - Hadley Rodas DO Surgeon Hadley Rodas DO Bootmaker taylor Estimated Blood Loss 200 Findings Consistent with Post-Op Diagnosis Specimens Specimen Description: none per surgeon Disposition Accompanied Patient To Recovery: Yes Overlapping Procedure I was immediately available: during the entire case.
--- NOTE | 2019-06-03 17:27 | Operative Report ---
PG Post Operative Report Pre & Post Diagnosis Operation Date: 06/03/19 08:20 Pre-Op Diagnosis: RIGHT TIBIA, FIBULA FRACTURE Post-Op Diagnosis: RIGHT TIBIA, FIBULA FRACTURE I identified the patient and participated in the time-out.: Yes Procedure Operation Date: 06/03/19 08:20 Actual Procedures p Right Tibia Intramedullary Nail(Right) - Hadley Rodas DO Surgeon Hadley Rodas DO Lard Maker taylor Estimated Blood Loss 200 Findings Consistent with Post-Op Diagnosis Specimens No specimens Drains 0 Anesthesia Type General Complications none Disposition Accompanied Patient To Recovery: Yes Indications Severely displaced tibia fracture Description of Procedure Patient was brought to the operating room a general LMA anesthetic provided patient kept supine on the operative table. He was scrubbed first with Betadine from the tips of his toes to his mid thigh prepped twice with ChloraPrep draped sterile. A skin incision superior to the tibial tuberosity on the right open up the possible canal about 8 cm. We then placed a guidewire down the tibial shaft. Because it was irreducible and muscle folded into the fracture site had to open up the fracture to get it reduced. Made a skin incision fashion incision came breakdown of the fracture site irrigated this reduce this and thus could pass the guidewire. I sequentially reamed up to 11.5 mm selected a 10 mm leonor this was placed over the guidewire using the tibia in near anatomic position to lock to be approximately and distally medial to lateral screws. Reduction placement was near-anatomic. Irrigated closed in layers dural dressings applied extubated to PACU improved stable. Sponge and needle count correct. They will use was by the [email or web address] Estimated blood loss 200 cc Surgeon Damián Cortes I attest to the content of the Intraoperative Record and any orders documented therein. Any exceptions are noted below.
[2019-06-03] MEDS ORDERED: PHARMACY GLYCEMIC MGMT CONSULT PRN (17:37)
--- NOTE | 2019-06-03 18:58 | Anesthesiology Progress Note ---
Date of Service June 03, 2019 Anesthesia Post Procedure Vital Signs Vital Signs: Temp Pulse Pulse Pulse Resp BP BP 06/03/19 18:45 85 12 136/85 06/03/19 18:35 82 13 134/84 06/03/19 18:25 36.4 C L 78 12 117/81 06/03/19 18:15 85 14 137/87 06/03/19 18:05 88 20 138/100 06/03/19 17:55 101 H 21 123/102 H 06/03/19 17:45 85 13 118/94 06/03/19 17:35 83 13 107/68 06/03/19 17:25 87 13 119/93 06/03/19 17:18 36.0 C L 77 14 97/77 L 06/03/19 13:45 36.7 C 74 16 149/109 H 06/03/19 11:44 36.7 C 58 L 14 155/90 H 06/03/19 07:38 36.9 C 66 14 144/92 H 06/02/19 23:00 36.5 C 70 16 138/84 Pulse Ox 06/03/19 18:45 95 06/03/19 18:35 96 06/03/19 18:25 95 06/03/19 18:15 95 06/03/19 18:05 97 06/03/19 17:55 96 06/03/19 17:45 92 06/03/19 17:35 91 06/03/19 17:25 93 06/03/19 17:18 94 06/03/19 13:45 95 06/03/19 11:44 94 06/03/19 07:38 93 06/02/19 23:00 94 Pain Intensity Right Leg: Pain Intensity: 5 Transfer of Care Handoff Completed per policy Notes Mental Status: alert / awake / arousable Patient Amnestic to Procedure: Yes Nausea / Vomiting: adequately controlled Pain: adequately controlled Airway Patency, RR, SpO2: stable & adequate BP & HR: stable & adequate Hydration State: stable & adequate Anesthetic Complications: no major complications apparent
[2019-06-03] MEDS ORDERED: HYDROmorphone INJ 0.5 MG/0.5 ML SYR IV PRN (19:06)
[2019-06-03] MEDS: ACYCLOVIR 200 MG CAP PO SCH (19:27)
[2019-06-03] MEDS: PANTOprazole 40 MG TAB PO SCH (19:27)
[2019-06-03] MEDS: OMEGA-3 (PURIFIED FISH OIL) 1 GM CAP PO SCH (19:27)
[2019-06-03] MEDS ORDERED: GLUCAGON FOR INJ 1 MG VIAL IM PRN (19:45)
[2019-06-03] MEDS ORDERED: CARBOHYDRATES FOR HYPOGLYCEMIA PO PRN (19:45)
[2019-06-03] MEDS ORDERED: GLUCOSE 10 TABS/TUBE PO PRN (19:45)
[2019-06-03] MEDS ORDERED: GLUCOSE 40% GEL 15 GM TUBE PO PRN (19:45)
[2019-06-03] MEDS ORDERED: DEXTROSE 50% 50 ML SYRINGE IV PRN (19:45)
[2019-06-03] MEDS: OXYCODONE/ACETAMINOPHEN 10-325 TAB PO PRN (22:21)
[2019-06-04] MEDS ORDERED: CEFAZOLIN 2000MG 2,000 MG/15 ML SYR IV ONE
[2019-06-04] MEDS ORDERED: INSULIN ASPART 100 UNITS/ML 3 ML PEN SC ONE (02:00)
[2019-06-04] MEDS: KETOROLAC 30 MG/ML VIAL IV SCH ×3 (02:04→14:09)
[2019-06-04] MEDS ORDERED: Nursing to Pharmacy Communication ONE (02:27)
[2019-06-04 07:05] LABS: Basophils # (auto) 0.01 K/uL (0-0.2); Basophils % (auto) 0.1 %; Eosinophils # (auto) 0.01 K/uL (0-0.5); Eosinophils % (auto) 0.1 %; Hematocrit (blood only) 36.1 % (42-52); Hemoglobin 11.4 g/dL (14.0-18.0); Immature Granulocytes # (auto) 0.06 K/uL (0.00-0.02); Immature Granulocytes % (auto) 0.4 %; Lymphocytes # (auto) 1.28 K/uL (1.2-3.4); Mean Corpuscular Hemoglobin 26.1 pg (25-34); Mean Corpuscular Hgb Conc 31.6 g/dL (32-36); Mean Corpuscular Volume 82.8 fL (80-100); Mean Platelet Volume 11.8 fL (7.4-10.4); Monocytes # (auto) 1.29 K/uL (0.11-0.59); Monocytes % (auto) 9.1 %; Neutrophils # (auto) 11.58 K/uL (1.4-6.5); Neutrophils % (auto) 81.3 %; Platelet Count 188 K/uL (130-400); RDW Coefficient of Variation 14.8 % (11.5-14.5); RDW Standard Deviation 44.6 fL (36.4-46.3); Red Blood Count 4.36 M/uL (4.7-6.1); White Blood Count 14.23 K/uL (4.8-10.8)
[2019-06-04 07:38] LABS: BUN Creatinine Ratio 9.3 (10-20); Calcium 8.5 mg/dl (8.5-10.1); Creatinine Clr Calc Pharmacy 118.9 ml/min; Est GFR (African American) 113.7; Est GFR (Non-African American) 98.1; Potassium 3.8 mmol/L (3.5-5.1)
--- NOTE | 2019-06-04 08:12 | Anesthesiology Progress Note ---
Date of Service June 04, 2019 Anesthesia Post Procedure Vital Signs Vital Signs: Temp Pulse Pulse Pulse Resp BP BP 06/04/19 07:12 36.8 C 87 16 131/79 06/04/19 03:50 36.9 C 73 16 123/78 06/03/19 23:58 37.0 C 77 16 142/68 H 06/03/19 22:10 36.8 C 90 154/86 H 06/03/19 20:55 36.7 C 86 17 146/82 H 06/03/19 19:00 36.7 C 88 18 149/83 H 06/03/19 18:45 85 12 136/85 06/03/19 18:35 82 13 134/84 06/03/19 18:25 36.4 C L 78 12 117/81 06/03/19 18:15 85 14 137/87 06/03/19 18:05 88 20 138/100 06/03/19 17:55 101 H 21 123/102 H 06/03/19 17:45 85 13 118/94 06/03/19 17:35 83 13 107/68 06/03/19 17:25 87 13 119/93 06/03/19 17:18 36.0 C L 77 14 97/77 L 06/03/19 13:45 36.7 C 74 16 149/109 H 06/03/19 11:44 36.7 C 58 L 14 155/90 H Pulse Ox 06/04/19 07:12 95 06/04/19 03:50 94 06/03/19 23:58 92 06/03/19 22:10 94 06/03/19 20:55 97 06/03/19 19:00 98 06/03/19 18:45 95 06/03/19 18:35 96 06/03/19 18:25 95 06/03/19 18:15 95 06/03/19 18:05 97 06/03/19 17:55 96 06/03/19 17:45 92 06/03/19 17:35 91 06/03/19 17:25 93 06/03/19 17:18 94 06/03/19 13:45 95 06/03/19 11:44 94 Pain Intensity Right Leg: Pain Intensity: 2 Notes Mental Status: alert / awake / arousable and participated in evaluation Patient Amnestic to Procedure: Yes Nausea / Vomiting: adequately controlled Pain: adequately controlled Airway Patency, RR, SpO2: stable & adequate BP & HR: stable & adequate Hydration State: stable & adequate Anesthetic Complications: no major complications apparent and Pt Satisfied with anesthetic care
[2019-06-04] MEDS ORDERED: ASPIRIN 325 MG ECTAB PO SCH (09:00)
[2019-06-04] MEDS: INSULIN ASPART 100 UNITS/ML 3 ML PEN SC SCH ×2 (09:15→13:08)
[2019-06-04] MEDS: ACYCLOVIR 200 MG CAP PO SCH (09:35)
[2019-06-04] MEDS: PANTOprazole 40 MG TAB PO SCH (09:35)
[2019-06-04] MEDS: OMEGA-3 (PURIFIED FISH OIL) 1 GM CAP PO SCH (09:35)
[2019-06-04] MEDS: OXYCODONE/ACETAMINOPHEN 10-325 TAB PO PRN ×2 (10:35→16:51)
--- NOTE | 2019-06-04 10:54 | Pharmacy Report ---
Glycemic Control Consultation - Date of Service June 04, 2019 - Scope Scope: Glycemic Pharmacist consulted by Maco Cortes on 06/04 for glycemic control and to write orders per [facility] inpatient glycemic control protocol - Objective Weight: 107.983 kg Accuchecks BSG (last 24hrs): 06/03/19 06/03/19 06/03/19 12:04 17:19 19:19 Glucose POC Glucose 119 H 158 H 158 H 06/03/19 06/04/19 06/04/19 21:03 02:05 06:23 Glucose 125 H POC Glucose 173 H 154 H 06/04/19 08:15 Glucose POC Glucose 123 H Laboratory Data (last 24hrs): 06/04/19 06:23 Potassium 3.8 Carbon Dioxide 28 Anion Gap 5.0 Creatinine 0.85 Est Cr Clr Drug Dosing 118.9 HbA1c: Hemoglobin A1c 6.7 % (4.5-5.6) H 06/02/19 03:10 - Recent Pertinent Medications Outpatient Anti-diabetic Regimen: * metformin 2000 mg ER Qam * A1c = 6.7 % 06/02/19 Risk Factors for Insulin Resistance: * Steroids: dex in OR 06/03 * Recent Surgery: POD 1 * Diet: T2DM - Assessment & Plan Assessment & Plan: ASSESSMENT: * 54 year old male admitted with fracture of tibia now s/p surgery. POD 1 today. Patient did receive dexamethasone in OR yesterday, however BSGs well controlled * Received total of 3 units of insulin yesterday, fasting this am 125 mg/dL - loosened CF/CR as BSGs trending down/anticipate steroids to wear off * Patient just starting diet this morning - could consider adding metformin back on tomorrow if po intake increases/renal function stable PLAN FOR INPATIENT GLYCEMIC CONTROL: * Pt is maintained on oral antidiabetic agents as an outpatient * Oral agents are not recommended for inpatient use d/t drug interactions, changing PO intake, and difficulty titrating for acute hyper/hypoglycemia. ADA recommends re-initiating outpatient oral agents 1-2 days prior to discharge if/when appropriate if they were held on admission. * Will hold oral agents for admission and utilize SQ basal bolus insulin regimen which is the recommended regimen for inpatient glycemic control. * Basal insulin * Lantus- hold * Bolus insulin * NovoLog per scale ACHS or Q6hrs while NPO * Goal Range: Low 110 mg/dL - High 140 mg/dL * Correction Factor: 30 mg/dL/unit * Nutritional / Prandial insulin per carb ratio of 1 unit per 12 grams CHO consumed PLAN FOR DISCHARGE: * A1c = 6.7 % on 06/02/19 * Goal A1c = less than 7 % based on age and comorbidities * Would recommend continuation of metformin on discharge / no changes * Please note that the plan above was derived based on current level of insulin resistance and hospital stress. These recommendations are appropriate for inpatient admission only. Plan of care upon discharge will need to be reassessed to avoid potential outpatient hypo/hyperglycemia. Thank you.
--- NOTE | 2019-06-04 13:56 | Hospitalist Progress Note ---
Date of Service June 04, 2019 Assessment & Plan (1) Fracture of distal end of right tibia: - Closed comminuted fx of R distal tibia and oblique fx of proximal fibular shaft due to mechanical fall S/P nailing on 06/03 - Surgical management per primary - ASA 325 mg daily for DVT prophylaxis (2) Fracture of fibula, proximal: - As above, orthopedic management (3) Hypertension: - Mildly elevated but stable - 140 systolics - Enalapril can be resumed on D/C (4) Diabetes: - Well-controlled; A1c 6.5 - Can resume Metformin on D/C (5) Alcohol intoxication: - Ethyl alcohol 108 on admission - reports 8-12 beers prior to fall - Denies heavy chronic use - mostly drinks with hunting season - no withdrawal signs (6) Hypertriglyceridemia: - Previously on fenofibrate and gemfibrizol - developed rash on taken on medications - Patient reports increased exercise and dietary changes; has controlled DM - Continued outpatient monitoring (7) Anemia: - Rather new finding in comparison to previous labs - Possibly this is acute blood loss due to fracture - Had colonoscopy x 6 months ago which was normal; has significant GERD with last EGD 6 years ago - Can F/U with GI for possible repeat EGD as outpatient - labs with low end MCV but it is normal - iron panel WNL - can be followed as outpatient -- Denies any melena or BRBPR - Fecal occult blood ordered for testing (8) GERD (gastroesophageal reflux disease): - Continue Protonix 40 mg daily (9) Herpetic mag: - No exacerbation - Continue Acyclovir 400 mg daily (10) DVT prophylaxis: - Per primary pending surgery Disposition: Home this evening Subjective Reports feeling well this morning. Pain is controlled. Has been ambulating but NWB to RLE. Tolerating diet without issue. Discussed Hgb and need for monitoring. Denies melena or blood stools. Likely anemia is from acute fracture. BSGs acceptable. Plans to return home this afternoon. Verbalizes no other complaints Review of Systems Constitutional: no fever and no chills Respiratory: no cough and no dyspnea Cardiovascular: no chest pain, no palpitations and no edema Gastrointestinal: no abdominal pain, no nausea, no vomiting, no constipation and no diarrhea/loose stools Genitourinary: no dysuria Musculoskeletal: + joint pain (controlled with medications) R lower leg pain Integumentary: no rash Neurologic: no tingling and no numbness Physical Exam Constitutional: WD/WN, vitals as above Eyes: + anicteric sclerae ENMT: Ears: no hearing impairment Mouth: oral mucous membranes not dry Neck: trachea midline Respiratory: normal respiratory effort, lungs clear to auscultation Cardiovascular: RRR, no murmur, no edema Gastrointestinal (Abdomen): Inspection/Auscultation: normal bowel sounds Percussion/Palpation: abdomen soft; abdomen nontender Musculoskeletal: Head/Neck/Chest: normocephalic and head atraumatic RLE with dressing/BRYANT wrap applied C/D/I; movement to toes intact and equal warm temperature Skin: no rashes, warm and dry Neurologic: moves all extremities Psychiatric: A+Ox3, euthymic affect Results & Data Vital Signs (Past 12 Hours) Vital Signs Temp Pulse Resp BP Pulse Ox 06/04/19 12:14 36.7 C 82 16 146/78 H 91 06/04/19 07:12 36.8 C 87 16 131/79 95 06/04/19 03:50 36.9 C 73 16 123/78 94 PG Care Time/CCT Total # of Minutes Spent Total Time Spent with Patient: Total time spent is greater than 50% in coordination of care (as documented) at patient's floor/unit and/or counseling patient: (1) Fracture of distal end of right tibia Encounter type: initial encounter Fracture morphology: unspecified fracture morphology Fracture type: closed Qualified Code(s): S82.301A - Unspecified fracture of lower end of right tibia, initial encounter for closed fracture (2) Fracture of fibula, proximal Encounter type: initial encounter Fracture morphology: unspecified fracture morphology Fracture type: closed Laterality: right Qualified Code(s): S82.831A - Other fracture of upper and lower end of right fibula, initial encounter for closed fracture (3) Alcohol intoxication Complication of substance-induced condition: uncomplicated Qualified Code(s): F10.920 - Alcohol use, unspecified with intoxication, uncomplicated
[2019-06-04 16:12] VITALS: BP 147/62; PULSE 73; TEMP 98.2; O2SAT 97
[2019-06-05] MEDS ORDERED: INSULIN ASPART 100 UNITS/ML 3 ML PEN SC SCH (07:30)
[2019-06-05] MEDS ORDERED: METFORMIN HCL ER 500 MG TABCR PO SCH (09:00)
--- NOTE | 2019-06-11 10:53 | Discharge Summary ---
[facility] was admitted on 06/02/2019, discharged on 06/04/2019 with a comminuted fracture of the tibia. He did well, up and ambulatory day 1, discharged home day 2. Instructions, precautions provided. He had uneventful hospital stay. There were no issues. He has a followup in 10 days. He was placed on narcotics and aspirin.
== END 2019-06-04 17:02 | disposition home or self-care (01) | DRG 493 ==
LOC: 3E 01:54 → ED 01:54 → 3E 03:32

== ENCOUNTER 2023-10-30 13:57 | Observation (INO) ==
--- NOTE | 2023-10-30 14:18 | ED Triage Note ---
Date of Service October 30, 2023 Provider in Triage Author: Vianey Egan History of Present Illness This patient was briefly evaluated while in triage. An abbreviated physical exam was performed. This patient is a 58-year-old Male who presents to the ED for evaluation of right upper abdominal pain that started yesterday, came on gradually. No nausea, vomiting, diarrhea, constipation. Has had a normal appetite. Denies urinary symptoms, denies hx of kidney stones. No previous abd surgeries. Physical Exam CONSTITUTIONAL: No acute distress. Well appearing. RESPIRATORY: Clear to auscultation bilaterally. Equal expansion bilaterally. CARDIOVASCULAR: Regular rate and rhythm. GASTROINTESTINAL: TTP in epigastric and RUQ. Soft, BS present. NEUROLOGIC: Alert and oriented X 4 with normal affect. Initial orders for labs and / or imaging were placed and patient was placed in the waiting area until a bed is available. Please see further documentation for the full ED course.
[2023-10-30 15:24] LABS: Basophils # (auto) 0.08 K/uL (0.00-0.20); Basophils % (auto) 0.6 %; Eosinophils # (auto) 0.25 K/uL (0.00-0.50); Eosinophils % (auto) 1.7 %; Hematocrit (blood only) 47.7 % (42.0-52.0); Hemoglobin 16.6 g/dl (14.0-18.0); Immature Granulocytes # (auto) 0.06 K/uL (0.01-0.20); Immature Granulocytes % (auto) 0.4 %; Lymphocytes % (auto) 11.1 %; Mean Corpuscular Hemoglobin 30.9 pg (25.0-34.0); Mean Corpuscular Hgb Conc 34.8 g/dL (32.0-36.0); Mean Corpuscular Volume 88.7 fL (80.0-100.0); Mean Platelet Volume 10.9 fL (9.4-12.4); Monocytes % (auto) 8.4 %; Neutrophils # (auto) 11.17 K/uL (1.40-6.50); Neutrophils % (auto) 77.8 %; Platelet Count 184 K/uL (130-400); RDW Coefficient of Variation 13.2 % (11.5-14.5); RDW Standard Deviation 42.7 fL (36.4-46.3); Red Blood Count 5.38 M/uL (4.70-6.10); White Blood Count 14.36 K/ul (4.8-10.8)
[2023-10-30 15:45] LABS: Albumin Globulin Ratio 1.8 (0.9-2); Albumin Level 4.6 gm/dl (3.4-5.0); BUN Creatinine Ratio 10.9 (10-20); Bilirubin,Total 0.8 mg/dl (0.2-1.0); Calcium 9.2 mg/dl (8.6-10.3); Creatinine Clr Calc Pharmacy 93.4 ml/min; Est GFR (African American) 93.9 ml/min; Globulin 2.5 gm/dl (2.5-4.0); Potassium 4.2 mmol/L (3.5-5.1); Total Protein 7.1 gm/dl (6.0-8.3)
--- NOTE | 2023-10-30 15:47 | Electrocardiogram Report ---
Test Reason : Blood Pressure : / mmHG Vent. Rate : 077 BPM Atrial Rate : 077 BPM P-R Int : 192 ms QRS Dur : 070 ms QT Int : 360 ms P-R-T Axes : 019 014 006 degrees QTc Int : 407 ms Normal sinus rhythm Normal ECG When compared with ECG of 03-JUN-2019 18:02, Premature supraventricular complexes are no longer Present Confirmed by Tucker Hamilton ([id number]) on 10/30/2023 3:46:57 PM Referred By: Confirmed By:Tucker Hamilton
[2023-10-30 15:50] LABS: Partial Thromboplastin Time 27 Seconds (21-31); Prothrombin Time 11.3 Seconds (9.0-12.0)
[2023-10-30 15:51] LABS: Troponin I High Sensitivity 2.5 pg/ml (0-20)
[2023-10-30] MEDS: OPTIRAY 320 100ml IV ONE (16:03)
[2023-10-30] MEDS: SODIUM CHLORIDE 0.9% 1,000 ML IV SCH (16:18)
[2023-10-30] MEDS: KETOROLAC TROMETHAMINE 15 MG/ML VIAL IV ONE (16:19)
--- NOTE | 2023-10-30 16:26 | CT Scan Report ---
CT OF THE ABDOMEN AND PELVIS WITH CONTRAST CLINICAL HISTORY: Upper abdominal pain, ruq and flank pain. COMPARISON STUDY: CT of the abdomen and pelvis May 09, 2022. TECHNIQUE: Following IV administration of 90 mL of Optiray, axial images of the abdomen and pelvis we re obtained from the lung bases to the proximal femurs. Images were reviewed in the axial, sagittal, and coronal planes. IV contrast was administered without complication. Automated exposure control wa s utilized for the study. A dose lowering technique was utilized adhering to the principles of ALARA . CT DOSE: 1360.25 mGy.cm FINDINGS: Lung bases are unremarkable. No pneumatosis, free air or portal venous gas is present. Live r, spleen, adrenal glands, kidneys and pancreas are normal. There is no biliary or pancreatic ductal dilatation. There is no hydronephrosis. There is no evidence for a bowel obstruction. Colonic diverti culosis is present. Is no evidence for acute diverticulitis. The appendix is dilated, measuring 1.6 c m in caliber. The appendix is fluid-filled and contains multiple appendicoliths. Moderate periappendi ceal inflammation is present. The appendix is within the posterior mid abdomen. Trace fluid within th e pelvis is present. There is no abscess. No extraluminal gas is present. IMPRESSION: Findings consistent with acute appendicitis. Significantly dilated appendix which contai ns numerous appendicoliths. Moderate periappendiceal infiltration. Appendix located within the social work coordinator ior mid abdomen. No free air. No abscess. ACT 112: Negative or not required by law. Electronically signed by: Conrad Mcclelland M.D. 10/30/2023 4:24 PM
[2023-10-30] MEDS: cefOXitin 2,000 MG/60 ML BAG IV STA (16:50)
[2023-10-30] MEDS: MoRPHine SULFATE 10 MG/ML CARP/VIAL IV STA (16:51)
[2023-10-30] MEDS: ONDANSETRON INJ 2 MG/ML 2 ML VIAL IV STA (16:51)
--- NOTE | 2023-10-30 16:52 | Emergency Department Note ---
Impression & Plan Acute appendicitis, Abdominal pain, Leukocytosis ED Provider Note NAME: BRUCE MAURO AGE: 58 SEX: M : 1965 ARRIVES VIA: Walk-In INFORMANT: Patient ED PROVIDER(S): Rigoberto Grace DO CHIEF COMPLAINT: abdominal pain HPI: Patient is a 58-year-old male who presents ER for abdominal pain which started yesterday. Associated with nausea but no vomiting. He notes it is worse with twisting, turning, bending, and movement. He has never had that before. Pain is constant. Denies any dysuria, urgency or frequency. No previous abdominal surgeries. No other exacerbating or remitting factors. No fevers. ADDITIONAL HISTORY OBTAINED: Per who notes that he has been having abdominal pain and that he last ate around 7:30 in the morning when she made him a sandwich. Chronic Medical/Social Conditions Affecting Care: Per HPI PAST MEDICAL HISTORY:See Below PAST SURGICAL HISTORY:See Below FAMILY HISTORY:See Below SOCIAL HISTORY:See Below HOME MEDICATIONS:See Below ALLERGIES:See Below VITALS:See Below PHYSICAL EXAMINATION: GENERAL: Sitting up in bed, alert, well appearing, well nourished, no distress, non-toxic EYE EXAM: normal conjunctiva. OROPHARYNX: mucous membranes are moist NECK: supple, no nuchal rigidity, no adenopathy, non-tender LUNGS: Clear to auscultation. Normal chest wall mechanics HEART: no murmurs, S1 normal and S2 normal ABDOMEN: abdomen firm, diffusely tender with guarding worse in the right lower quadrant UPPER EXTREMITIES: upper extremities are grossly normal. LOWER EXTREMITIES: No pitting edema. NEURO EXAM: Normal sensorium, cranial nerves II-XII grossly intact, normal speech, no gross weakness of arms, no gross weakness of legs. MEDICAL DECISION MAKING: Patient is a 58-year-old male who presents ER for diffuse abdominal pain. IV was established blood work was obtained. Vitals were unremarkable. Labs show mild leukocytosis of 14,000. No significant anemia. INR unremarkable. BMP with slightly elevated glucose at 147. LFTs bilirubin and troponin was negative. Lipase was normal. CT abdomen pelvis confirms acute appendicitis. Patient was given IV fluids, Toradol, morphine and cefoxitin. He was updated bedside. He was discussed with Dr. Allen Granados for further evaluation management treatment and admission for the OR. She recommended admission to the hospitalist. I discussed the case with Dr. Sony Roldan and patient will be admitted to the hospitalist service and taken to the OR by general surgery. Consults/Care Managements Discussions: Per MDM Triage Nursing notes reviewed. Limited review of prior medical records performed Vital Signs: reviewed and remarkable for no significant abnormalities Differential diagnosis: Differential diagnoses includes but is not limited to gastritis, peptic ulcer disease, GERD, gallbladder disease, pancreatitis, small bowel obstruction, appendicitis, diverticulitis, hernia, urinary tract infection, torsion, perforation, trauma, infectious. ER treatment provided: See below Diagnostics interpreted by me include EKG and cardiac monitoring as listed below: -Cardiac Monitoring: An order was placed for continuous cardiac monitoring. The monitor shows a rate of 80 with sinus rhythm. -ECG: Sinus rhythm rate 77 Normal axis No PVCs QTc 407 -Laboratory studies:Interpreted by me as stated above in MDM and shown below. Imaging studies: Xrays: As interpreted by me:none CTs show: CT abdomen pelvis per my preliminary interpretation showed no obvious bowel obstruction CT abdomen pelvis per radiology showed acute appendicitis Procedures:none Critical Care: None Past Med/Surg History Medical History (Updated 10/30/23 @ 19:02 by Rigoberto Grace DO) Umbilical hernia Chronic neck pain Dawn-rectal abscess Olecranon bursitis Herpetic mag Dyslipidemia GERD (gastroesophageal reflux disease) Tibia fracture Fracture of fibula, proximal Hypertension Right shoulder injury Surgical History History of elbow surgery Family History Mother Myocardial infarction, Onset Age: 48 at age 48 Diabetes Hypertension Kidney disease Brother Diabetes, Onset Age: 20 on insulin Grandfather Diabetes Social History (Updated 08/28/23 @ 13:12 by Carol Rich LPN) Smoking Status: Never smoker Second Hand Exposure: No; Do You Dip or Chew Tobacco: No; Hx Alcohol Use: No Hx Substance Use: No Preferred Language: Wolof Communication Ability: Effective Communication Ability Comment: verbal [place] Required: No Beliefs That Will Affect Care: None marital status: Current Living Situation: Spouse current occupational status: employed 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 Feels Safe at Home: Yes Childhood Exposure to Second-Hand Smoke: Yes Diet: regular caffeine: Yes Dental Care, Regularly: No Physical Activity Frequency: Daily Seatbelt Use: always Sunscreen Use: No Assistive Devices: Glasses Allergies Allergies Allergy/AdvReac Type Severity Reaction Status Date / Time gemfibrozil AdvReac Mild rash Verified 10/30/23 18:22 Home Meds Home Medications Medication Instructions Recorded Confirmed omega-3 fatty acids 1,000 mg 1,000 mg PO QAM 02/08/19 10/30/23 capsule (Fish Oil Concentrate) aspirin 81 mg tablet,delayed 81 mg PO DAILY 05/13/20 10/30/23 release multivitamin 1 tab PO DAILY 10/30/23 10/30/23 Previous Rx's Medication Instructions Recorded metformin 500 mg tablet,extended 2,000 mg (4 x 500 mg) PO QAM 90 01/13/23 release 24 hr days #360 tabs acyclovir 200 mg capsule 400 mg (2 x 200 mg) PO DAILY #180 05/23/23 caps fenofibrate nanocrystallized 48 mg 48 mg PO DAILY #90 tabs 06/05/23 tablet pantoprazole 40 mg tablet,delayed 40 mg PO DAILY #90 tabs 06/05/23 release enalapril maleate 10 mg tablet 10 mg PO DAILY #90 tabs 09/03/23 rosuvastatin 20 mg tablet (Crestor) 20 mg PO DAILY #30 tabs 09/03/23 semaglutide 1 mg/dose (4 mg/3 mL) 1 mg (0.75 mL) subcut Q7D #4 09/08/23 subcutaneous pen injector (Ozempic) syringes Results & Data (ED) Vital Signs Vital Signs - 24 hr 10/30/23 14:13 10/30/23 15:49 10/30/23 17:10 Temperature 36.7 C Temperature Source Temporal Artery Scan Pulse Rate 85 74 Pulse Rate [Finger] 75 Respiratory Rate 20 18 Respiratory Effort / Characteristics Non-Labored Spontaneous Non-Labored Spontaneous Respiratory Depth Normal Normal Blood Pressure 155/99 H Blood Pressure [Right Arm] 147/93 H Blood Pressure Mean 117 Blood Pressure Mean [Right Arm] 111 Pulse Oximetry 97 97 Oxygen Delivery Method Room Air Room Air Sepsis Recent Fever Within 48 Hours No Sepsis New/Unexplained Change in Mental Status No Sepsis Action Taken by Nursing No Action Required 10/30/23 17:11 Temperature 37.2 C Temperature Source Oral Pulse Rate Pulse Rate [Finger] 78 Respiratory Rate 18 Respiratory Effort / Characteristics Respiratory Depth Blood Pressure Blood Pressure [Right Arm] 156/90 H Blood Pressure Mean Blood Pressure Mean [Right Arm] 112 Pulse Oximetry 94 Oxygen Delivery Method Room Air Sepsis Recent Fever Within 48 Hours Sepsis New/Unexplained Change in Mental Status Sepsis Action Taken by Nursing Laboratory Data 10/30/23 15:10 10/30/23 15:10 Lab Results 10/30/23 Range/Units 15:10 WBC 14.36 H (4.8-10.8) K/ul RBC 5.38 (4.70-6.10) M/uL Hgb 16.6 (14.0-18.0) g/dl Hct 47.7 (42.0-52.0) % MCV 88.7 (80.0-100.0) fL MCH 30.9 (25.0-34.0) pg MCHC 34.8 (32.0-36.0) g/dL RDW Std Deviation 42.7 (36.4-46.3) fL RDW Coeff of Carisa 13.2 (11.5-14.5) % Plt Count 184 (130-400) K/uL MPV 10.9 (9.4-12.4) fL Immature Gran % (Auto) 0.4 % Neut % (Auto) 77.8 % Lymph % (Auto) 11.1 % [place] % (Auto) 8.4 % Eos % (Auto) 1.7 % Baso % (Auto) 0.6 % Neut # (Auto) 11.17 H (1.40-6.50) K/uL Lymph # (Auto) 1.60 (1.20-3.40) K/uL [place] # (Auto) 1.20 H (0.11-0.59) K/uL Eos # (Auto) 0.25 (0.00-0.50) K/uL Baso # (Auto) 0.08 (0.00-0.20) K/uL Immature Gran # (Auto) 0.06 (0.01-0.20) K/uL PT 11.3 (9.0-12.0) Seconds INR 1.0 (0.9-1.1) APTT 27 (21-31) Seconds PTT Ratio 1.0 Sodium 137 (136-145) mmol/L Potassium 4.2 (3.5-5.1) mmol/L Chloride 104 (98-107) mmol/L Carbon Dioxide 28 (21-32) mmol/L Anion Gap 5 (3-11) BUN 11 (6-23) mg/dl Creatinine 1.01 (0.6-1.4) mg/dl Est Cr Clr Drug Dosing 93.4 ml/min Est GFR ( Amer) 93.9 ml/min Est GFR (Non-Af Amer) 81.0 ml/min BUN/Creatinine Ratio 10.9 (10-20) Glucose 147 H (70-99(Fasting)) mg/dl Calcium 9.2 (8.6-10.3) mg/dl Total Bilirubin 0.8 (0.2-1.0) mg/dl AST 22 (13-39) U/L ALT 26 (7-52) U/L Alkaline Phosphatase 77 (34-104) U/L Troponin I High Sens 2.5 (0-20) pg/ml Total Protein 7.1 (6.0-8.3) gm/dl Albumin 4.6 (3.4-5.0) gm/dl Globulin 2.5 (2.5-4.0) gm/dl Albumin/Globulin Ratio 1.8 (0.9-2) Lipase 33 (11-82) U/L Administered Medications Discontinued Medications Sodium Chloride (Nss) 1,000 mls @ 999 mls/hr IV .Q1H1M KAIN Stop: 10/30/23 18:15 Last Admin: 10/30/23 17:32 Dose: 999 mls/hr Documented By: Infusion: 10/30/23 17:19 Dose: Infused Documented By: Admin: 10/30/23 16:18 Dose: 999 mls/hr Documented By: JUAN JOSE Cefoxitin Sodium (Mefoxin) 2,000 mg in 60 mls @ 100 mls/hr IV NOW STA Stop: 10/30/23 17:05 Last Infusion: 10/30/23 17:32 Dose: Infused Documented By: Admin: 10/30/23 16:50 Dose: 100 mls/hr Documented By: ART Ioversol (Optiray 320 100ml) 90 ml IV ONCE ONE Stop: 10/30/23 16:04 Last Admin: 10/30/23 16:03 Dose: 90 ml Documented By: JOHNATHON Ketorolac Tromethamine (Ketorolac Tromethamine 15 Mg/Ml Vial) 15 mg IV NOW ONE Stop: 10/30/23 16:10 Last Admin: 10/30/23 16:19 Dose: Not Given Documented By: JUAN JOSE Morphine Sulfate (Morphine Sulfate 10 Mg/Ml Carp/Vial) 6 mg IV NOW STA Stop: 10/30/23 16:31 Last Admin: 10/30/23 16:51 Dose: 6 mg Documented By: ART Ondansetron HCl (Ondansetron Inj 2 Mg/Ml 2 Ml Vial) 4 mg IV NOW STA Stop: 10/30/23 16:31 Last Admin: 10/30/23 16:51 Dose: 4 mg Documented By: ART Imaging Data Radiologist's Impression: Abdomen/Pelvis CT 10/30/23 14:19 CT OF THE ABDOMEN AND PELVIS WITH CONTRAST CLINICAL HISTORY: Upper abdominal pain, ruq and flank pain. COMPARISON STUDY: CT of the abdomen and pelvis May 09, 2022. TECHNIQUE: Following IV administration of 90 mL of Optiray, axial images of the abdomen and pelvis were obtained from the lung bases to the proximal femurs. Images were reviewed in the axial, sagittal, and coronal planes. IV contrast was administered without complication. Automated exposure control was utilized for the study. A dose lowering technique was utilized adhering to the principles of ALARA. CT DOSE: 1360.25 mGy.cm FINDINGS: Lung bases are unremarkable. No pneumatosis, free air or portal venous gas is present. Liver, spleen, adrenal glands, kidneys and pancreas are normal. There is no biliary or pancreatic ductal dilatation. There is no hydronephrosis. There is no evidence for a bowel obstruction. Colonic diverticulosis is present. Is no evidence for acute diverticulitis. The appendix is dilated, measuring 1.6 cm in caliber. The appendix is fluid-filled and contains multiple appendicoliths. Moderate periappendiceal inflammation is present. The appendix is within the posterior mid abdomen. Trace fluid within the pelvis is present. There is no abscess. No extraluminal gas is present. IMPRESSION: Findings consistent with acute appendicitis. Significantly dilated appendix which contains numerous appendicoliths. Moderate periappendiceal infiltration. Appendix located within the posterior mid abdomen. No free air. No abscess. ACT 112: Negative or not required by law. Electronically signed by: Conrad Mcclelland M.D. 10/30/2023 4:24 PM Discharge Plan Visit Data Chief Complaint: Abdominal Pain Stated Complaint: ABD PAINS ED Provider: Rigoberto Grace Discharge Problem: Acute appendicitis, Abdominal pain, Leukocytosis Patient Disposition: Admitted As Inpatient Discharge Instructions Interventions: ED Discharge Assessment Last Done: 10/30/23 18:47 Discharge Problem: Acute appendicitis Qualifiers: Acute appendicitis type: with localized peritonitis Appendicitis gangrene presence: unspecified whether gangrene present Appendicitis perforation presence: unspecified whether perforation present Appendicitis abscess presence: unspecified whether abscess present Qualified Code(s): K35.30 - Acute appendicitis with localized peritonitis, without perforation or gangrene Abdominal pain Qualifiers: Abdominal location: unspecified location Qualified Code(s): R10.9 - Unspecified abdominal pain Leukocytosis Qualifiers: Leukocytosis type: unspecified Qualified Code(s): D72.829 - Elevated white blood cell count, unspecified
[2023-10-30] MEDS ORDERED: PROPOFOL IV EMULSION 10 MG/ML 20 ML VIAL IV ONE (18:38)
[2023-10-30] MEDS ORDERED: SUCCINYLCHOLINE 100MG/5ML SYR IV ONE (18:38)
[2023-10-30] MEDS ORDERED: fentaNYL citrate PF 100 MCG/2 ML VIAL ONE ×3 (18:38→19:49)
[2023-10-30] MEDS ORDERED: ROCURONIUM BROMIDE 10 MG/ML 5 ML VIAL IV ONE ×2 (18:39→21:39)
--- NOTE | 2023-10-30 19:02 | Surgery Consultation ---
Date of Consultation October 30, 2023 Assessment & Plan (1) Acute appendicitis: (2) Hypertension: (3) Type 2 diabetes mellitus with obesity: Plan Patient is admitted to medicine for management of comorbidities including his active hypertension, diabetes mellitus. Plan is for acute surgical intervention this evening. Patient's last meal was at 7:30 AM. IV fluids initiated in the emergency room as well as IV antibiotics. Continue scheduled IV antibiotics N.p.o. for now for surgical planning Mechanical DVT prophylaxis Pain control with analgesics as necessary Provide antiemetics as needed. History of Present Illness Reason for Consultation: Abdominal pain, CT findings equivalent for acute appendicitis Requesting Physician: Dr. Grace Attending Physician: Donte Brown DO History of Present Illness Mr. Villa is a 58-year-old male with a past medical history of hypertension, diabetes, GERD and dyslipidemia who presents to the emergency department with a complaint of right lower quadrant abdominal pain which he states began yesterday. This pain is not associated with nausea, vomiting or diarrhea. He does admit to experiencing some reflux. In the ED he is HD stable and afebrile. CT of the abdomen pelvis was obtained which reveals an acute appendicitis with a dilated appendix containing fecaliths and no evidence for perforation. An EKG without acute changes was obtained in the emergency department. Allergies Allergy/AdvReac Type Severity Reaction Status Date / Time gemfibrozil AdvReac Mild rash Verified 10/30/23 18:22 Home Medications Medication Instructions Recorded Confirmed Type omega-3 fatty acids 1,000 mg 1,000 mg PO QAM 02/08/19 10/30/23 History capsule (Fish Oil Concentrate) aspirin 81 mg tablet,delayed 81 mg PO DAILY 05/13/20 10/30/23 History release metformin 500 mg tablet,extended 2,000 mg (4 x 500 mg) PO QAM 90 01/13/23 10/30/23 Rx release 24 hr days #360 tabs acyclovir 200 mg capsule 400 mg (2 x 200 mg) PO DAILY #180 05/23/23 10/30/23 Rx caps fenofibrate nanocrystallized 48 mg 48 mg PO DAILY #90 tabs 06/05/23 10/30/23 Rx tablet pantoprazole 40 mg tablet,delayed 40 mg PO DAILY #90 tabs 06/05/23 10/30/23 Rx release enalapril maleate 10 mg tablet 10 mg PO DAILY #90 tabs 09/03/23 10/30/23 Rx rosuvastatin 20 mg tablet (Crestor) 20 mg PO DAILY #30 tabs 09/03/23 10/30/23 Rx semaglutide 1 mg/dose (4 mg/3 mL) 1 mg (0.75 mL) subcut Q7D #4 09/08/23 10/30/23 Rx subcutaneous pen injector (Ozempic) syringes multivitamin 1 tab PO DAILY 10/30/23 10/30/23 History Patient History Medical History (Updated 10/30/23 @ 19:10 by Donte Brown, DO) Umbilical hernia Chronic neck pain Dawn-rectal abscess Olecranon bursitis Herpetic mag Dyslipidemia GERD (gastroesophageal reflux disease) Tibia fracture Fracture of fibula, proximal Hypertension Right shoulder injury Surgical History History of elbow surgery Family History Mother Myocardial infarction, Onset Age: 48 at age 48 Diabetes Hypertension Kidney disease Brother Diabetes, Onset Age: 20 on insulin Grandfather Diabetes Social History (Updated 08/28/23 @ 13:12 by Carol Rich LPN) Smoking Status: Never smoker Second Hand Exposure: No; Do You Dip or Chew Tobacco: No; Hx Alcohol Use: No Hx Substance Use: No Preferred Language: Mongolian Communication Ability: Effective Communication Ability Comment: verbal [place] Required: No Beliefs That Will Affect Care: None marital status: Current Living Situation: Spouse current occupational status: employed 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 Feels Safe at Home: Yes Childhood Exposure to Second-Hand Smoke: Yes Diet: regular caffeine: Yes Dental Care, Regularly: No Physical Activity Frequency: Daily Seatbelt Use: always Sunscreen Use: No Assistive Devices: Glasses Review of Systems Constitutional: no fever, no chills, no sweats, no weakness and no weight loss Respiratory: no cough, no pain on inspiration, no sputum production and no wheezing Cardiovascular: no chest pain at rest, no chest pain with activity, no dyspnea, no orthopnea and no palpitations Gastrointestinal: + abdominal pain (Right lower quadrant) and + heartburn; no early satiety and no nausea Genitourinary: no dysuria, no difficulty urinating, no urinary frequency or no hematuria Physical Exam Constitutional: + ill appearing (Appears in pain, nontox ic appearing) and healthy appearing; not in distress and not diaphoretic Respiratory: normal respiratory effort; no respiratory distress, no labored breathing and does not use accessory muscles Cardiovascular: Rate/Rhythm: regular rate and regular rhythm; not tachycardic Extremities well-perfused Results & Data Vital Signs (Past 12 Hours) Vital Signs Temp Pulse Pulse Resp BP BP Pulse Ox 10/30/23 17:11 37.2 C 78 18 156/90 H 94 10/30/23 17:10 74 10/30/23 15:49 75 18 147/93 H 97 10/30/23 14:13 36.7 C 85 20 155/99 H 97 O2 Del Method 10/30/23 17:11 Room Air 10/30/23 17:10 10/30/23 15:49 Room Air 10/30/23 14:13 Room Air Laboratory Results WBC 14,000 with neutrophil show No electrolyte disturbance Diagnostic Findings CT a/P: Acute appendicitis without evidence for perforation PG Care Time/CCT Total # of Minutes Spent Total Time Spent with Patient: Total time spent is greater than 50% in coordination of care (as documented) at patient's floor/unit and/or counseling patient: [place] [address] OP VST NEW LOW 30 MIN Patient Type New History Detailed Exam Detailed Medical Decision Making Low Complexity Diagnoses Acute appendicitis K35.30 Acute appendicitis type: with localized peritonitis Appendicitis abscess presence: unspecified whether abscess present Appendicitis gangrene presence: unspecified whether gangrene present Appendicitis perforation presence: unspecified whether perforation present Primary hypertension I10 Hypertension type: primary hypertension Type 2 diabetes mellitus with obesity E11.69; E66.9 (1) Acute appendicitis Acute appendicitis type: with localized peritonitis Appendicitis abscess pre sence: unspecified whether abscess present Appendicitis gangrene presence: unspecified whether gangrene present Appendicitis perforation presence: unspecified whether perforation present Qualified Code(s): K35.30 - Acute appen dicitis with localized peritonitis, without perforation or gangrene (2) Hypertension Hypertension type: primary hypertension Qualified Code(s): I10 - Essential (primary) hypertension
[2023-10-30] MEDS ORDERED: ePHEDrine sulfate 50 MG/ML AMP IV PRN (19:11)
[2023-10-30] MEDS ORDERED: ATROPINE SULFATE 0.1 MG/ML 10ML SYR IV PRN (19:11)
[2023-10-30] MEDS ORDERED: HYDROmorphone INJ 2 MG/ML SYR/VIAL IV PRN (19:11)
[2023-10-30] MEDS ORDERED: fentaNYL citrate PF 100 MCG/2 ML VIAL IV PRN (19:11)
[2023-10-30] MEDS ORDERED: ONDANSETRON INJ 2 MG/ML 2 ML VIAL IV PRN ×2 (19:11→22:28)
--- NOTE | 2023-10-30 19:11 | Anesthesiology Consultation ---
Date of Service October 30, 2023 Assessment & Plan ASA ASA2 Proposed Anesthesia Anesthesia Type: General Risk / Benefits Reviewed With: PT / POA / Parent / Guardian, Accepts Plan and Informed Consent Obtained Additional Comments: off ozempic one week History Surgery Operation Date: 10/30/23 19:00 Proposed Procedures p Laparoscopic Appendectomy - Donte Brown, Height/Weight Height: 5 ft 9 in Weight: 103.6 kg Allergies Allergy/AdvReac Type Severity Reaction Status Date / Time gemfibrozil AdvReac Mild rash Verified 10/30/23 18:22 Medications Home Medications Medication Instructions Recorded Confirmed Last Taken omega-3 fatty acids 1,000 mg 1,000 mg PO QAM 02/08/19 10/30/23 10/30/23 capsule (Fish Oil Concentrate) aspirin 81 mg tablet,delayed 81 mg PO DAILY 05/13/20 10/30/23 10/30/23 release metformin 500 mg tablet,extended 2,000 mg (4 x 500 mg) PO QAM 90 01/13/23 10/30/23 10/30/23 release 24 hr days #360 tabs acyclovir 200 mg capsule 400 mg (2 x 200 mg) PO DAILY #180 05/23/23 10/30/23 10/30/23 caps fenofibrate nanocrystallized 48 mg 48 mg PO DAILY #90 tabs 06/05/23 10/30/23 10/30/23 tablet pantoprazole 40 mg tablet,delayed 40 mg PO DAILY #90 tabs 06/05/23 10/30/23 10/30/23 release enalapril maleate 10 mg tablet 10 mg PO DAILY #90 tabs 09/03/23 10/30/23 10/30/23 rosuvastatin 20 mg tablet (Crestor) 20 mg PO DAILY #30 tabs 09/03/23 10/30/23 10/30/23 semaglutide 1 mg/dose (4 mg/3 mL) 1 mg (0.75 mL) subcut Q7D #4 09/08/23 10/30/23 10/23/23 subcutaneous pen injector (Ozempic) syringes multivitamin 1 tab PO DAILY 10/30/23 10/30/23 10/30/23 NPO Date Last Intake of Fluids: 10/30/23 Time Last Intake of Fluids: 06:30 Date Last Intake of Solids: 10/30/23 Time Last Intake of Solids: 06:30 Past Medical History Medical History Umbilical hernia Chronic neck pain Dawn-rectal abscess Olecranon bursitis Herpetic mag Dyslipidemia GERD (gastroesophageal reflux disease) Tibia fracture Fracture of fibula, proximal Hypertension Right shoulder injury Exercise / Class Metabolic Activity II 4-5 Yardwork/Stairs/Walk up hill Past Family History Family History Mother Myocardial infarction, Onset Age: 48 at age 48 Diabetes Hypertension Kidney disease Brother Diabetes, Onset Age: 20 on insulin Grandfather Diabetes Past Surgical History Surgical History History of elbow surgery Past Anesthesia History No Hx of Anesthesia Complications and No Family Hx of Anesthesia Complications History of PONV No Hx of PONV and No Hx of Motion Sickness Social History Smoking Status: Never smoker Do You Dip or Chew Tobacco: No Hx Alcohol Use: No Alcohol type: beer and hard liquor alcohol intake frequency: a few times a week Hx Substance Use: No Review of Systems denies fever/cough/ colds/ chest pain/ SOB/ KRISTINE denies KRISTINE Physical Exam Vital Signs Last Vital Signs Temp 37.4 C 10/30/23 18:55 Pulse 79 10/30/23 18:55 Resp 18 10/30/23 18:55 BP 151/102 H 10/30/23 18:55 Pulse Ox 97 10/30/23 18:55 O2 Del Method Room Air 10/30/23 18:55 ENMT Mouth: no TMJ abnormality and no dentition abnormality Thyromental Distance: > or= 3.5 Finger Breadths Mallampati Class: IV Neck + facial hair; neck extension not limited Respiratory normal respiratory effort; no respiratory distress Auscultation: lungs clear to auscultation bilaterally Cardiovascular Rate/Rhythm: regular rate and regular rhythm Neurologic moves all extremities Psychiatric Orientation: alert and oriented x 3 Testing Laboratory Results 10/30/23 15:10 10/30/23 15:10 PT 11.3 Seconds (9.0-12.0) 10/30/23 15:10 INR 1.0 (0.9-1.1) 10/30/23 15:10 APTT 27 Seconds (21-31) 10/30/23 15:10
[2023-10-30] MEDS ORDERED: ONDANSETRON INJ 2 MG/ML 2 ML VIAL ONE (19:33)
[2023-10-30] MEDS ORDERED: KETOROLAC 30 MG/ML VIAL ONE (19:33)
[2023-10-30] MEDS ORDERED: DEXAMETHASONE SOD INJ 4 MG/ML VIAL ONE (19:33)
[2023-10-30] MEDS ORDERED: ePHEDrine sulfate 50 MG/ML AMP ONE (19:44)
[2023-10-30] MEDS ORDERED: SUGAMMADEX SODIUM 200 MG/2 ML VIAL IV ONE (19:50)
[2023-10-30] MEDS: BUPIVACAINE/EPINEPHRINE 0.5% MPF 1:200,000 30 ML VIAL ONE (21:23)
--- NOTE | 2023-10-30 21:58 | Operative Report ---
PG Post Operative Report Pre & Post Diagnosis Operation Date: 10/30/23 19:00 Pre-Op Diagnosis: Acute Appendicitis Post-Op Diagnosis: Acute Appendicitis I identified the patient and participated in the time-out.: Yes Procedure Operation Date: 10/30/23 19:00 Actual Procedures p Laparoscopic Appendectomy(Not Applicable) - Donte Brown DO Surgeon Donte Brown DO Tooling Engineering Tech No ophthalmology surgical technician Estimated Blood Loss 5 Findings See Below retromesenteric appendix, acutely inflamed, enlarged, thickened. Patient also has an umbilical hernia. Specimens Appendix Drains None Anesthesia Type General Complications None Indications Acute appendicitis, leukocytosis Description of Procedure The patient was brought back to the operating room and placed on the operating room table in supine position. He was connected to cardiac and oxygen monitoring, supplemental O2 was provided. SCDs were applied to bilateral lower extremities. General anesthesia was administered and a secure airway was established. A Vickers catheter was inserted. The abdomen was prepped and draped in typical sterile fashion. A timeout was conducted. An umbilical hernia is noted. After anesthetizing the skin just superior to the umbilicus, a small stab incision was made and intra-abdominal access was gained using a Veress needle. CO2 insufflation was initiated to establish pneumoperitoneum to local pressure 15 mmHg. Once this pressure was established, a 5 mm laparoscope was inserted using direct visualization and a 5 mm Visiport trocar. Local anesthetic was injected at the left lower quadrant and an incision was made large enough for a 12 mm trocar which was inserted under direct visualization a 5 mm suprapubic trocar in the midline. There was no injury to intra-abdominal contents with insertion of the Veress needle or trocars. The operating table was placed and left side down. The small bowel was mobilized and the cecum was identified. The appendix was not visualized. The terminal ileum was identified and its location confirmed. The ileocecal fat pad was also identified not thickened, soft and no appendix seen. With careful manipulation of the cecum a tubular structure was noted tightly the pulled retrocecal and encased in thin peritoneum. Careful blunt dissection was used to expose the base of the structure. The appendiceal base was then isolated and confirmed. Further dissection of the remainder of the appendix was undertaken. The appendix was very densely retracted and adhesed to the posterior aspect of the small bowel mesentery. An additional 5 mm trocar had to be inserted at the right upper quadrant for additional retraction. The base of the appendix was gently retracted superiorly using a grasper from this location. At this point, the appendix was carefully dissected using blunt dissection away from the posterior aspect of the small bowel mesentery. The appendix was very thickened from the midportion to the tip. With repositioning of the retracting grasper and ongoing careful blunt dissection using the suction equipment maint tech, eventually the full length of the appendix was able to be exposed including the mesoappendix which was tucked tightly behind the small bowel mesentery. Once this was freed, LigaSure was used to seal and transect the appendiceal artery as well as additional p eritoneal attachments along the inferior border of the appendix. There was a small amount of bleeding. The full base of the appendix was completely exposed and the appendix was then ligated and transected using a 45 mm purple loaded Endo RJ stapler. The appendix was placed in an Endo Catch bag and removed from the abdomen. This was placed in a label container sent to pathology for further analysis. The right lower quadrant was examined extensively. Excess nuris were suctioned away and the entire area was thoroughly inspected for hemostasis. Gentle irrigation with saline was used to clear away old blood and this was suctioned away to thoroughly inspect the area for hemostasis. There was no bleeding. The OR table was returned to the neutral position and omentum was used to cover the operative site of the right lower quadrant. Pneumoperitoneum was evacuated, instruments and trocars were removed. The left lower quadrant 12 mm trocar site was closed at the level of the fascia with 0 Vicryl. Local anesthetic was injected at all incision sites. The abdomen was wiped clean with a saline soaked lap pad and dried. 4-0 Vicryl suture was used to approximate the deep dermis. All incisions were sealed with Dermabond. The patient tolerated the procedure well. He was awakened from anesthesia and a secure airway was removed. The Vickers catheter was removed at the end of the case. The patient was transferred to recovery in stable condition. Please add a modifier for level of difficulty as the appendix required an extensive amount of dissection to free it away from the posterior small bowel mesentery I attest to the content of the Intraoperative Record and any orders documented therein. Any exceptions are noted below.
--- NOTE | 2023-10-30 22:01 | Anesthesiology Progress Note ---
Date of Service October 30, 2023 Anesthesia Post Procedure Vital Signs Vital Signs: Temp Pulse Pulse Pulse Resp BP BP 10/30/23 21:44 36.5 C 98 H 15 143/74 H 10/30/23 18:55 37.4 C 79 18 10/30/23 17:11 37.2 C 78 18 10/30/23 17:10 74 10/30/23 15:49 75 18 10/30/23 14:13 36.7 C 85 20 155/99 H BP Pulse Ox O2 Del Method 10/30/23 21:44 94 Oxymask 10/30/23 18:55 151/102 H 97 Room Air 10/30/23 17:11 156/90 H 94 Room Air 10/30/23 17:10 10/30/23 15:49 147/93 H 97 Room Air 10/30/23 14:13 97 Room Air Pain Intensity Right Abdomen: Pain Intensity: 10 Transfer of Care Handoff Completed per policy Notes Mental Status: alert / awake / arousable and participated in evaluation Patient Amnestic to Procedure: Yes Nausea / Vomiting: adequately controlled Pain: adequately controlled Airway Patency, RR, SpO2: stable & adequate BP & HR: stable & adequate Hydration State: stable & adequate Anesthetic Complications: no major complications apparent and Pt Satisfied with anesthetic care
[2023-10-30] MEDS ORDERED: oxyCODONE HCL IR 5 MG TAB (IMMEDIATE RELEASE) PO PRN (22:22)
[2023-10-30] MEDS ORDERED: ACETAMINOPHEN 325 MG TAB PO PRN (22:24)
[2023-10-30] MEDS ORDERED: GLUCOSE 10 TAB/TUBE PO PRN (23:58)
[2023-10-30] MEDS ORDERED: DEXTROSE 50% 50 ML SYRINGE IV PRN (23:58)
[2023-10-30] MEDS ORDERED: GLUCOSE 40% GEL 15 GM TUBE PO PRN (23:58)
[2023-10-30] MEDS ORDERED: GLUCAGON FOR INJ 1 MG VIAL SQ PRN (23:58)
[2023-10-30] MEDS ORDERED: CARBOHYDRATES FOR HYPOGLYCEMIA PO PRN (23:58)
[2023-10-31] MEDS: diphenhydrAMINE Capsule 25 MG CAP PO ONE (00:10)
[2023-10-31 00:36] LABS: Appearance Urine Clear (Clear); Bilirubin Urine Negative (Negative); Blood Urine Negative (Negative); Color Urine Yellow; Glucose Urine UA 2+ (Negative); Ketones Urine Negative (Negative); Leukocyte Esterase Urine Negative (Negative); Nitrite Urine Negative (Negative); Protein Urine Negative (Negative); Specific Gravity Urine 1.014 (1.000-1.030); Urobilinogen Urine Negative (Negative); pH Urine 7.5 (4.5-7.5)
--- NOTE | 2023-10-31 01:06 | History & Physical Report ---
Date of Service October 30, 2023 Assessment & Plan (1) Acute appendicitis: Plan: 58yo male with history of DM, HTN, HLP and GERD presenting with one day of RLQ abdominal pain. Patient found to have acute appendicitis. He had a laparoscopic appendectomy performed on 10/30/23 - well tolerated with no complications. Presently he is doing well with no new complaints. -Admit to medical -Oxycodone as needed for pain -Zofran as needed for nausea -Post-operative instructions per Surgical team -Resume ASA 81mg daily when OK with Surgery (2) Hypertension: Plan: Blood pressure mildly elevated at present -Pain control with Oxycodone as needed -Continue Enalapril 10mg po daily -Continue to monitor (3) Type 2 diabetes mellitus with obesity: Plan: Overall well controlled. Last HgbA1C on 09/01/23 = 5.6 -Hold Metformin and Semaglutide -ISS while inpatient - goal blood sugar 110 - 140 (4) Dyslipidemia: Plan: Chronic. Stable -Continue Crestor 20mg po daily -Patient may resume his fenofibrate on discharge for management of his hypertriglyceridemia (5) GERD (gastroesophageal reflux disease): Plan: Chronic. Stable -Continue Protonix 40mg po daily (6) Herpetic mag: Plan: Chronic. Stable -Patient is on Acyclovir for chronic suppressive therapy -Continue Admission and Anticipated Discharge Date Admission Date: October 30, 2023 History of Present Illness Chief Complaint: RLQ abdominal pain Primary Care Provider: Brittani Kennedy MD [facility] is a pleasant 58yo male with history of DM, HTN, HLP and GERD presenting with RLQ abdominal pain which began yesterday 10/29/23. He reports the pain steadily worsened throughout the day which prompted him to come to the ER. He denies fever, chills, nausea, vomiting, diarrhea, abdominal distention or rigidity. No additional complaints at this time. Patient found to have elevated WBC count in the ER WBC=14.36. CT of the abdomen and pelvis with contrast revealed findings consistent with acute appendicitis. Patient was taken to the OR and had a laparoscopic appendectomy performed by Dr. Brown under general anesthesia. The surgery was well tolerated with no immediate complications identified and minimal blood loss. No evidence of perforation. Patient was admitted to the medical floor He is currently doing well with no complaints. Did ambulate to the bathroom to urinate without difficulty. Is asking for something to drink. No flatus or BM as of yet. No additional complaints. Allergies Allergy/AdvReac Type Severity Reaction Status Date / Time gemfibrozil AdvReac Mild rash Verified 10/30/23 18:22 Home Medications Medication Instructions Recorded Confirmed Type omega-3 fatty acids 1,000 mg 1,000 mg PO QAM 02/08/19 10/30/23 History capsule (Fish Oil Concentrate) aspirin 81 mg tablet,delayed 81 mg PO DAILY 05/13/20 10/30/23 History release metformin 500 mg tablet,extended 2,000 mg (4 x 500 mg) PO QAM 90 01/13/23 10/30/23 Rx release 24 hr days #360 tabs acyclovir 200 mg capsule 400 mg (2 x 200 mg) PO DAILY #180 05/23/23 10/30/23 Rx caps fenofibrate nanocrystallized 48 mg 48 mg PO DAILY #90 tabs 06/05/23 10/30/23 Rx tablet pantoprazole 40 mg tablet,delayed 40 mg PO DAILY #90 tabs 06/05/23 10/30/23 Rx release enalapril maleate 10 mg tablet 10 mg PO DAILY #90 tabs 09/03/23 10/30/23 Rx rosuvastatin 20 mg tablet (Crestor) 20 mg PO DAILY #30 tabs 09/03/23 10/30/23 Rx semaglutide 1 mg/dose (4 mg/3 mL) 1 mg (0.75 mL) subcut Q7D #4 09/08/23 10/30/23 Rx subcutaneous pen injector (Ozempic) syringes multivitamin 1 tab PO DAILY 10/30/23 10/30/23 History Past Med/Surg History Medical History Umbilical hernia Chronic neck pain Dawn-rectal abscess Olecranon bursitis Herpetic mag Dyslipidemia GERD (gastroesophageal reflux disease) Tibia fracture Fracture of fibula, proximal Hypertension Right shoulder injury Surgical History (Updated 10/31/23 @ 00:57 by Sherie Moe DO) History of laparoscopic appendectomy 10/30/23 - Dr. Donte Brown History of elbow surgery Family History Mother Myocardial infarction, Onset Age: 48 at age 48 Diabetes Hypertension Kidney disease Brother Diabetes, Onset Age: 20 on insulin Grandfather Diabetes Social History (Updated 08/28/23 @ 13:12 by Carol Rich LPN) Smoking Status: Never smoker Second Hand Exposure: No; Do You Dip or Chew Tobacco: No; Hx Alcohol Use: Yes Alcohol type: beer Alcohol type Comment: typically only increased intake 8-10 beers during hunting season Hx Substance Use: No Preferred Language: [place] Citizen Communication Ability: Effective Communication Ability Comment: verbal Physical Security Specialist Required: No Beliefs That Will Affect Care: None marital status: Current Living Situation: Spouse current occupational status: employed 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 Other Information That Helps Us Care for You: No Feels Safe at Home: Yes Safety Concerns: Feels Safe At This Time Childhood Exposure to Second-Hand Smoke: Yes Diet: regular caffeine: Yes Dental Care, Regularly: No Physical Activity Frequency: Daily Seatbelt Use: always Sunscreen Use: No Assistive Devices: Glasses Review of Systems Review of Systems: All systems reviewed & are unremarkable except as noted in HPI & below Physical Exam Physical Exam: General: patient resting comfortably, NAD, non-toxic in appearance, AA&O x 4 Skin: warm, dry, no rashes or lesions HEENT: NC/AT, PERRL, EOMI, anicteric sclera, conjunctiva without injection, external ear normal to inspection and nontender, nares patent, moist mucus membranes, dentition intact, no oropharyngeal lesions, neck supple, trachea midline, no LAD, no thyromegaly, no JVD Heart: +S1/S2, regular, no m/r/g Lungs: equal air entry bilaterally, no rales/rhonchi/wheezes Abd: +BS, soft, NT/ND, surgical sites well approximated with no bleeding, drainage or dehiscence Ext: warm, 2+ pulses in UE/LE bilaterally, no clubbing/cyanosis or edema, SCDs in place Neuro: nonfocal, patient AA&O x 4, speech intact, no facial droop, moving all extremities on command with equal strength 5/5 Results & Data Results & Data Vital Signs (Past 12 Hours) Vital Signs Temp Pulse Pulse Pulse Resp BP BP 10/31/23 00:46 36.6 C 107 H 16 143/76 H 10/30/23 23:40 36.6 C 105 H 18 169/92 H 10/30/23 23:15 36.4 C L 100 H 16 138/77 10/30/23 22:40 36.5 C 99 H 16 134/90 10/30/23 22:20 36.4 C L 98 H 18 138/78 10/30/23 22:10 98 H 15 144/86 H 10/30/23 22:00 102 H 20 166/94 H 10/30/23 21:50 98 H 12 132/89 10/30/23 21:44 36.5 C 98 H 15 143/74 H 10/30/23 18:55 37.4 C 79 18 10/30/23 17:11 37.2 C 78 18 10/30/23 17:10 74 10/30/23 15:49 75 18 10/30/23 14:13 36.7 C 85 20 155/99 H BP Pulse Ox O2 Del Method 10/31/23 00:46 93 Room Air 10/30/23 23:40 96 Room Air 10/30/23 23:15 94 Room Air 10/30/23 22:40 95 Room Air 10/30/23 22:20 94 Oxymask 10/30/23 22:10 94 Oxymask 10/30/23 22:00 95 Oxymask 10/30/23 21:50 96 Oxymask 10/30/23 21:44 94 Oxymask 10/30/23 18:55 151/102 H 97 Room Air 10/30/23 17:11 156/90 H 94 Room Air 10/30/23 17:10 10/30/23 15:49 147/93 H 97 Room Air 10/30/23 14:13 97 Room Air Laboratory Results Laboratory Results WBC 14.36 K/ul (4.8-10.8) H 10/30/23 15:10 RBC 5.38 M/uL (4.70-6.10) 10/30/23 15:10 Hgb 16.6 g/dl (14.0-18.0) 10/30/23 15:10 Hct 47.7 % (42.0-52.0) 10/30/23 15:10 MCV 88.7 fL (80.0-100.0) 10/30/23 15:10 MCH 30.9 pg (25.0-34.0) 10/30/23 15:10 MCHC 34.8 g/dL (32.0-36.0) 10/30/23 15:10 RDW Std Deviation 42.7 fL (36.4-46.3) 10/30/23 15:10 RDW Coeff of Carisa 13.2 % (11.5-14.5) 10/30/23 15:10 Plt Count 184 K/uL (130-400) 10/30/23 15:10 MPV 10.9 fL (9.4-12.4) 10/30/23 15:10 Immature Gran % (Auto) 0.4 % 10/30/23 15:10 Neut % (Auto) 77.8 % 10/30/23 15:10 Lymph % (Auto) 11.1 % 10/30/23 15:10 [place] % (Auto) 8.4 % 10/30/23 15:10 Eos % (Auto) 1.7 % 10/30/23 15:10 Baso % (Auto) 0.6 % 10/30/23 15:10 Neut # (Auto) 11.17 K/uL (1.40-6.50) H 10/30/23 15:10 Lymph # (Auto) 1.60 K/uL (1.20-3.40) 10/30/23 15:10 [place] # (Auto) 1.20 K/uL (0.11-0.59) H 10/30/23 15:10 Eos # (Auto) 0.25 K/uL (0.00-0.50) 10/30/23 15:10 Baso # (Auto) 0.08 K/uL (0.00-0.20) 10/30/23 15:10 Immature Gran # (Auto) 0.06 K/uL (0.01-0.20) 10/30/23 15:10 PT 11.3 Seconds (9.0-12.0) 10/30/23 15:10 INR 1.0 (0.9-1.1) 10/30/23 15:10 APTT 27 Seconds (21-31) 10/30/23 15:10 PTT Ratio 1.0 10/30/23 15:10 Sodium 137 mmol/L (136-145) 10/30/23 15:10 Potassium 4.2 mmol/L (3.5-5.1) 10/30/23 15:10 Chloride 104 mmol/L (98-107) 10/30/23 15:10 Carbon Dioxide 28 mmol/L (21-32) 10/30/23 15:10 Anion Gap 5 (3-11) 10/30/23 15:10 BUN 11 mg/dl (6-23) 10/30/23 15:10 Creatinine 1.01 mg/dl (0.6-1.4) 10/30/23 15:10 Est Cr Clr Drug Dosing 93.4 ml/min 10/30/23 15:10 Est GFR ( Amer) 93.9 ml/min 10/30/23 15:10 Est GFR (Non-Af Amer) 81.0 ml/min 10/30/23 15:10 BUN/Creatinine Ratio 10.9 (10-20) 10/30/23 15:10 Glucose 147 mg/dl (70-99(Fasting)) H 10/30/23 15:10 POC Glucose 165 mg/dl (70-99) H 10/30/23 23:58 Calcium 9.2 mg/dl (8.6-10.3) 10/30/23 15:10 Total Bilirubin 0.8 mg/dl (0.2-1.0) 10/30/23 15:10 AST 22 U/L (13-39) 10/30/23 15:10 ALT 26 U/L (7-52) 10/30/23 15:10 Alkaline Phosphatase 77 U/L (34-104) 10/30/23 15:10 Troponin I High Sens 2.5 pg/ml (0-20) 10/30/23 15:10 Total Protein 7.1 gm/dl (6.0-8.3) 10/30/23 15:10 Albumin 4.6 gm/dl (3.4-5.0) 10/30/23 15:10 Globulin 2.5 gm/dl (2.5-4.0) 10/30/23 15:10 Albumin/Globulin Ratio 1.8 (0.9-2) 10/30/23 15:10 Lipase 33 U/L (11-82) 10/30/23 15:10 Urine Color Yellow 10/31/23 Unknown Urine Appearance Clear (Clear) 10/31/23 Unknown Urine pH 7.5 (4.5-7.5) 10/31/23 Unknown Ur Specific [place] 1.014 (1.000-1.030) 10/31/23 Unknown Urine Protein Negative (Negative) 10/31/23 Unknown Urine Glucose (UA) 2+ (Negative) H 10/31/23 Unknown Urine Ketones Negative (Negative) 10/31/23 Unknown Urine Blood Negative (Negative) 10/31/23 Unknown Urine Nitrite Negative (Negative) 10/31/23 Unknown Urine Bilirubin Negative (Negative) 10/31/23 Unknown Urine Urobilinogen Negative (Negative) 10/31/23 Unknown Ur Leukocyte Esterase Negative (Negative) 10/31/23 Unknown Impressions Abdomen/Pelvis CT 10/30/23 14:19 CT OF THE ABDOMEN AND PELVIS WITH CONTRAST CLINICAL HISTORY: Upper abdominal pain, ruq and flank pain. COMPARISON STUDY: CT of the abdomen and pelvis May 09, 2022. TECHNIQUE: Following IV administration of 90 mL of Optiray, axial images of the abdomen and pelvis were obtained from the lung bases to the proximal femurs. Images were reviewed in the axial, sagittal, and coronal planes. IV contrast was administered without complication. Automated exposure control was utilized for the study. A dose lowering technique was utilized adhering to the principles of ALARA. CT DOSE: 1360.25 mGy.cm FINDINGS: Lung bases are unremarkable. No pneumatosis, free air or portal venous gas is present. Liver, spleen, adrenal glands, kidneys and pancreas are normal. There is no biliary or pancreatic ductal dilatation. There is no hydronephrosis. There is no evidence for a bowel obstruction. Colonic diverticulosis is present. Is no evidence for acute diverticulitis. The appendix is dilated, measuring 1.6 cm in caliber. The appendix is fluid-filled and contains multiple appendicoliths. Moderate periappendiceal inflammation is present. The appendix is within the posterior mid abdomen. Trace fluid within the pelvis is present. There is no abscess. No extraluminal gas is present. IMPRESSION: Findings consistent with acute appendicitis. Significantly dilated appendix which contains numerous appendicoliths. Moderate periappendiceal infiltration. Appendix located within the posterior mid abdomen. No free air. No abscess. ACT 112: Negative or not required by law. Electronically signed by: Conrad Mcclelland M.D. 10/30/2023 4:24 PM Medications Administered Discontinued Medications Bupivacaine HCl/Epinephrine Bitart (Bupivacaine/Epinephrine 0.5% Mpf 1:200,000 30 Ml Vial) Confirm Administered Dose 30 ml .ROUTE .STK-MED ONE Stop: 10/30/23 19:11 Last Admin: 10/30/23 21:23 Dose: 30 ml Documented By: [id number] Diphenhydramine HCl (Diphenhydramine Capsule 25 Mg Cap) 25 mg PO PRN ONE Stop: 10/30/23 22:27 Last Admin: 10/31/23 00:10 Dose: Not Given Documented By: SHAILESH Sodium Chloride (Nss) 1,000 mls @ 999 mls/hr IV .Q1H1M KAIN Stop: 10/30/23 18:15 Last Infusion: 10/31/23 00:00 Dose: Infused Documented By: Admin: 10/30/23 17:32 Dose: 999 mls/hr Documented By: Infusion: 10/30/23 17:19 Dose: Infused Documented By: Admin: 10/30/23 16:18 Dose: 999 mls/hr Documented By: JUAN JOSE Cefoxitin Sodium (Mefoxin) 2,000 mg in 60 mls @ 100 mls/hr IV NOW STA Stop: 10/30/23 17:05 Last Infusion: 10/30/23 17:32 Dose: Infused Documented By: Admin: 10/30/23 16:50 Dose: 100 mls/hr Documented By: ART Ioversol (Optiray 320 100ml) 90 ml IV ONCE ONE Stop: 10/30/23 16:04 Last Admin: 10/30/23 16:03 Dose: 90 ml Documented By: JOHNATHON Ketorolac Tromethamine (Ketorolac Tromethamine 15 Mg/Ml Vial) 15 mg IV NOW ONE Stop: 10/30/23 16:10 Last Admin: 10/30/23 16:19 Dose: Not Given Documented By: JUAN JOSE Morphine Sulfate (Morphine Sulfate 10 Mg/Ml Carp/Vial) 6 mg IV NOW STA Stop: 10/30/23 16:31 Last Admin: 10/30/23 16:51 Dose: 6 mg Documented By: ART Ondansetron HCl (Ondansetron Inj 2 Mg/Ml 2 Ml Vial) 4 mg IV NOW STA Stop: 10/30/23 16:31 Last Admin: 10/30/23 16:51 Dose: 4 mg Documented By: ART ECG Additional Comments: DICTATED BY: Tucker Hamilton MD Test Reason : Blood Pressure : / mmHG Vent. Rate : 077 BPM Atrial Rate : 077 BPM P-R Int : 192 ms QRS Dur : 070 ms QT Int : 360 ms P-R-T Axes : 019 014 006 degrees QTc Int : 407 ms Normal sinus rhythm Normal ECG When compared with ECG of 03-JUN-2019 18:02, Premature supraventricular complexes are no longer Present Confirmed by Tucker Hamilton ([id number]) on 10/30/2023 3:46:57 PM Referred By: Confirmed By:Tucker Hamilton Code Status & VTE Plan VTE Prophylaxis Plan VTE Prophylaxis will be ordered: Yes PG Care Time/CCT Total # of Minutes Spent Total Time Spent with Patient: Total time spent is greater than 50% in coordination of care (as documented) at patient's floor/unit and/or counseling patient: Coding Level of Care Code 32692 INT INP/OBS CARE 2/55MIN Diagnoses Acute appendicitis K35.30 Acute appendicitis type: with localized peritonitis Appendicitis abscess presence: unspecified whether abscess present Appendicitis gangrene presence: unspecified whether gangrene present Appendicitis perforation presence: unspecified whether perforation present Primary hypertension I10 Hypertension type: primary hypertension Type 2 diabetes mellitus with obesity E11.69; E66.9 Dyslipidemia E78.5 GERD (gastroesophageal reflux disease) K21.9 Herpetic mag B00.89 (1) Acute appendicitis Acute appendicitis type: with localized peritonitis Appendicitis abscess pre sence: unspecified whether abscess present Appendicitis gangrene presence: unspecified whether gangrene present Appendicitis perforation presence: unspecified whether perforation present Qualified Code(s): K35.30 - Acute appen dicitis with localized peritonitis, without perforation or gangrene (2) Hypertension Hypertension type: primary hypertension Qualified Code(s): I10 - Essential (primary) hypertension
[2023-10-31 06:05] LABS: Basophils # (auto) 0.04 K/uL (0.00-0.20); Basophils % (auto) 0.3 %; Hematocrit (blood only) 43.1 % (42.0-52.0); Hemoglobin 14.9 g/dl (14.0-18.0); Immature Granulocytes # (auto) 0.09 K/uL (0.01-0.20); Immature Granulocytes % (auto) 0.6 %; Lymphocytes # (auto) 0.94 K/uL (1.20-3.40); Lymphocytes % (auto) 6.1 %; Mean Corpuscular Hemoglobin 30.7 pg (25.0-34.0); Mean Corpuscular Hgb Conc 34.6 g/dL (32.0-36.0); Mean Corpuscular Volume 88.9 fL (80.0-100.0); Mean Platelet Volume 11.3 fL (9.4-12.4); Monocytes # (auto) 1.03 K/uL (0.11-0.59); Monocytes % (auto) 6.7 %; Neutrophils # (auto) 13.22 K/uL (1.40-6.50); Neutrophils % (auto) 86.3 %; Platelet Count 184 K/uL (130-400); RDW Coefficient of Variation 13.1 % (11.5-14.5); RDW Standard Deviation 42.5 fL (36.4-46.3); Red Blood Count 4.85 M/uL (4.70-6.10); White Blood Count 15.32 K/ul (4.8-10.8)
[2023-10-31 06:18] LABS: Creatinine Clr Calc Pharmacy 101.4 ml/min; Est GFR (African American) 103.8 ml/min; Est GFR (Non-African American) 89.5 ml/min
[2023-10-31] MEDS: ENALAPRIL MALEATE 10 MG TAB PO SCH (07:54)
[2023-10-31] MEDS: ROSUVASTATIN CALCIUM 20 MG TAB PO SCH (07:55)
[2023-10-31] MEDS: ACYCLOVIR 200 MG CAP PO SCH (07:55)
[2023-10-31] MEDS: PANTOprazole 40 MG TAB PO SCH (07:55)
[2023-10-31] MEDS ORDERED: EPINEPHrine INJ 1 MG/ML AMP IM PRN (08:10)
[2023-10-31] MEDS ORDERED: ANAPHYLAXIS KIT ONE (08:10)
[2023-10-31] MEDS ORDERED: diphenhydrAMINE 50 MG/ML VIAL IV PRN ×2 (08:10)
[2023-10-31] MEDS ORDERED: methylPREDNISolone 125 MG/2 ML VIAL IV PRN (08:10)
[2023-10-31] MEDS: INSULIN ASPART PER UNIT CHARGE SC SCH (08:27)
--- NOTE | 2023-10-31 09:03 | Surgery Progress Note ---
<Statement entered by Donte Brown, DO - 10/31/23 10:37> I have seen and examined this patient with the RESIDENTIAL NURSE this am. I agree with the plan. Date of Service October 31, 2023 Assessment & Plan (1) Acute appendicitis: Plan: POD 1 Lap Appy WBC 15 started on IV Zosyn tolerating clears + flatus , will start fulls at dinner pain tolerable without analgesics encouraged ambulation and OOB Will keep overnight for IV antibiotics and assess discharge readiness in AM Pt seen with Dr. Brown Admission and Anticipated Discharge Date Admission Date: October 30, 2023 Subjective pt reports doing well Pain tolerable w/o analgesics No N/V, +flatus, tolerating clears Review of Systems Respiratory: no dyspnea Cardiovascular: no chest pain Gastrointestinal: no nausea and no vomiting no abdominal pain reported Musculoskeletal: no muscle weakness Physical Exam Physical Exam: alert oriented Constitutional: well developed, cooperative and comfortable; no acute distress Respiratory: normal respiratory effort and able to speak in complete sentences; no respiratory distress Gastrointestinal (Abdomen): Inspection/Auscultation: + abdomen distended and + abdominal surgical incision (dermabond CDI) Musculoskeletal: no cyanosis or clubbing, extremities motor strength 5/5 Psychiatric: A+Ox3, euthymic affect Results & Data Vital Signs (Past 12 Hours) Vital Signs Temp Pulse Pulse Resp BP Pulse Ox O2 Del Method 10/31/23 08:00 Room Air 10/31/23 07:43 99.5 F 103 H 16 138/84 93 Room Air 10/31/23 05:24 98.4 F 107 H 18 137/81 93 Room Air 10/31/23 01:22 98.2 F 107 H 16 107/66 94 Room Air 10/31/23 00:46 97.9 F 107 H 16 143/76 H 93 Room Air 10/30/23 23:40 97.9 F 105 H 18 169/92 H 96 Room Air 10/30/23 23:15 97.5 F L 100 H 16 138/77 94 Room Air 10/30/23 22:40 97.7 F 99 H 16 134/90 95 Room Air 10/30/23 22:20 97.5 F L 98 H 18 138/78 94 Oxymask 10/30/23 22:10 98 H 15 144/86 H 94 Oxymask 10/30/23 22:00 102 H 20 166/94 H 95 Oxymask 10/30/23 21:50 98 H 12 132/89 96 Oxymask 10/30/23 21:44 97.7 F 98 H 15 143/74 H 94 Oxymask Results CMP Results: Na 137 mmol/L (136-145) 10/31/23 K 4.0 mmol/L (3.5-5.1) 10/31/23 Cl 106 mmol/L (98-107) 10/31/23 CO2 22 mmol/L (21-32) 10/31/23 Anion Gap 9 (3-11) 10/31/23 BUN 9 mg/dl (6-23) 10/31/23 Creatinine 0.93 mg/dl (0.6-1.4) 10/31/23 Estimated GFR ( Amer) 103.8 ml/min 10/31/23 Estimated GFR (Non-Af Amer) 89.5 ml/min 10/31/23 BUN/Creatinine Ratio 10.9 (10-20) 10/30/23 Glu 147 mg/dl (70-99(Fasting)) H 10/30/23 Ca 9.0 mg/dl (8.6-10.3) 10/31/23 Total Bilirubin 0.8 mg/dl (0.2-1.0) 10/30/23 AST 22 U/L (13-39) 10/30/23 ALT 26 U/L (7-52) 10/30/23 Alkaline Phosphatase 77 U/L (34-104) 10/30/23 TP 7.1 gm/dl (6.0-8.3) 10/30/23 Albumin 4.6 gm/dl (3.4-5.0) 10/30/23 Globulin 2.5 gm/dl (2.5-4.0) 10/30/23 Albumin/Globulin Ratio 1.8 (0.9-2) 10/30/23 Results Complete Blood Count Results: RBC 4.85 M/uL (4.70-6.10) 10/31/23 WBC 15.32 K/ul (4.8-10.8) H 10/31/23 Hgb 14.9 g/dl (14.0-18.0) 10/31/23 Hct 43.1 % (42.0-52.0) 10/31/23 Plt Count 184 K/uL (130-400) 10/31/23 PG Care Time/CCT Total # of Minutes Spent Total Time Spent with Patient: Total time spent is greater than 50% in coordination of care (as documented) at patient's floor/unit and/or counseling patient: Coding Level of Care Code 09742 Post Operative Follow-Up Diagnoses Acute appendicitis K35.30 Acute appendicitis type: with localized peritonitis Appendicitis abscess presence: unspecified whether abscess present Appendicitis gangrene presence: unspecified whether gangrene present Appendicitis perforation presence: unspecified whether perforation present (1) Acute appendicitis Acute appendicitis type: with localized peritonitis Appendicitis abscess presence: unspecified whether abscess present Appendicitis gangrene presence: unspecified whether gangrene present Appendicitis perforation presence: unspecified whether perforation present Qualified Code(s): K35.30 - Acute appendicitis with localized peritonitis, without perforation or gangrene
[2023-10-31] MEDS: PIPER/TAZO 4.5g in D5W MINI-B 100 ML IV ONE (09:20)
--- NOTE | 2023-10-31 13:12 | Electrocardiogram Report ---
Test Reason : Blood Pressure : / mmHG Vent. Rate : 106 BPM Atrial Rate : 106 BPM P-R Int : 202 ms QRS Dur : 088 ms QT Int : 332 ms P-R-T Axes : 039 011 -06 degrees QTc Int : 441 ms Sinus tachycardia Otherwise normal ECG When compared with ECG of 30-OCT-2023 15:02, No significant change was found Confirmed by Tucker Hamilton ([id number]) on 10/31/2023 1:12:10 PM Referred By: REFERRED SELF Confirmed By:Tucker Hamilton
[2023-10-31] MEDS: PIPERACILLIN/TAZOBACTAM 4.5 GM in DEXTROSE 5% MINI-B 100 ML IV SCH (13:26)
--- NOTE | 2023-10-31 23:02 | Hospitalist Progress Note ---
Date of Service October 31, 2023 Assessment & Plan (1) Acute appendicitis: Plan: 58yo male with history of DM, HTN, HLP and GERD presenting with one day of RLQ abdominal pain. Patient found to have acute appendicitis. He had a laparoscopic appendectomy performed on 10/30/23 - well tolerated with no complications. Presently he is doing well with no new complaints. -Admit to medical -Oxycodone as needed for pain -Zofran as needed for nausea -Post-operative instructions per Surgical team -Resume ASA 81mg daily when OK with Surgery Patient will be monitored overnight and will be discharged in AM if cleared by surgery. (2) Hypertension: Plan: Blood pressure mildly elevated at present -Pain control with Oxycodone as needed -Continue Enalapril 10mg po daily (3) Type 2 diabetes mellitus with obesity: Plan: Overall well controlled. Last HgbA1C on 09/01/23 = 5.6 -Hold Metformin and Semaglutide -ISS while inpatient - goal blood sugar 110 - 140 (4) Dyslipidemia: Plan: Chronic. Stable -Continue Crestor 20mg po daily -Patient may resume his fenofibrate on discharge for management of his hypertriglyceridemia (5) GERD (gastroesophageal reflux disease): Plan: Chronic. Stable -Continue Protonix 40mg po daily (6) Herpetic mag: Plan: Chronic. Stable -Patient is on Acyclovir for chronic suppressive therapy -Continue Admission and Anticipated Discharge Date Admission Date: October 30, 2023 Subjective 58 yo male reports no new symptoms. His abdominal pain after surgery is minimal and he reprts he has not required any pain medicine. Patient reports he is passing gas. Review of Systems Review of Systems: All systems reviewed & are unremarkable except as noted in HPI & below Physical Exam Physical Exam: General: patient resting comfortably, NAD, non-toxic in appearance, AA&O x 4 Skin: warm, dry, no rashes or lesions HEENT: NC/AT, PERRL, EOMI Heart: +S1/S2, regular, no m/r/g Lungs: equal air entry bilaterally, no rales/rhonchi/wheezes Abd: +BS, soft, NT/ND, surgical sites well approximated with no bleeding, drainage or dehiscence Ext: warm, 2+ pulses in UE/LE bilaterally, no clubbing/cyanosis or edema, SCDs in place Neuro: nonfocal, patient AA&O x 4, speech intact, no facial droop, moving all extremities on command with equal strength 5/5 Results & Data Results & Data Vital Signs (Past 12 Hours) Vital Signs Temp Pulse Resp BP BP Pulse Ox O2 Del Method 10/31/23 20:22 36.8 C 85 18 131/82 96 Room Air 10/31/23 14:55 36.4 C L 90 16 123/76 94 Room Air 10/31/23 11:21 36.8 C 99 H 16 141/74 H 93 Room Air PG Care Time/CCT Total # of Minutes Spent Total Time Spent with Patient: Total time spent is greater than 50% in coordination of care (as documented) at patient's floor/unit and/or counseling patient: Coding Level of Care Code 27412 SUB INP/OBS CARE 2MIN Diagnoses Acute appendicitis K35.30 Acute appendicitis type: with localized peritonitis Appendicitis abscess presence: unspecified whether abscess present Appendicitis gangrene presence: unspecified whether gangrene present Appendicitis perforation presence: unspecified whether perforation present Primary hypertension I10 Hypertension type: primary hypertension Type 2 diabetes mellitus with obesity E11.69; E66.9 Dyslipidemia E78.5 GERD (gastroesophageal reflux disease) K21.9 Herpetic mga B00.89 (1) Acute appendicitis Acute appendicitis type: with localized peritonitis Appendicitis abscess presence: unspecified whether abscess present Appendicitis gangrene presence: unspecified whether gangrene present Appendicitis perforation presence: unspecified whether perforation present Qualified Code(s): K35.30 - Acute appendicitis with localized peritonitis, without perforation or gangrene (2) Hypertension Hypertension type: primary hypertension Qualified Code(s): I10 - Essential (primary) hypertension
[2023-11-01 08:21] LABS: Basophils # (auto) 0.08 K/uL (0.00-0.20); Basophils % (auto) 0.7 %; Eosinophils # (auto) 0.39 K/uL (0.00-0.50); Eosinophils % (auto) 3.4 %; Hematocrit (blood only) 44.1 % (42.0-52.0); Hemoglobin 15.2 g/dl (14.0-18.0); Immature Granulocytes # (auto) 0.06 K/uL (0.01-0.20); Immature Granulocytes % (auto) 0.5 %; Lymphocytes # (auto) 2.36 K/uL (1.20-3.40); Lymphocytes % (auto) 20.5 %; Mean Corpuscular Hemoglobin 31.1 pg (25.0-34.0); Mean Corpuscular Hgb Conc 34.5 g/dL (32.0-36.0); Mean Corpuscular Volume 90.4 fL (80.0-100.0); Mean Platelet Volume 10.8 fL (9.4-12.4); Monocytes # (auto) 0.94 K/uL (0.11-0.59); Monocytes % (auto) 8.2 %; Neutrophils # (auto) 7.69 K/uL (1.40-6.50); Neutrophils % (auto) 66.7 %; Platelet Count 182 K/uL (130-400); RDW Coefficient of Variation 13.3 % (11.5-14.5); RDW Standard Deviation 43.9 fL (36.4-46.3); Red Blood Count 4.88 M/uL (4.70-6.10); White Blood Count 11.52 K/ul (4.8-10.8)
--- NOTE | 2023-11-01 08:37 | Surgery Progress Note ---
<Statement entered by Donte Brown DO - 11/01/23 11:58> I have seen and examined this patient with the surgical PA and I agree with this plan Date of Service November 01, 2023 Assessment & Plan (1) Acute appendicitis: Plan: POD#2 laparoscopic appendectomy WBC 11.5 (15). Vitals are stable and patient afebrile Patient feels well, pain controlled, tolerating a diet, no nausea/vomiting Reports + gas and BM's Will advance to low fiber From our standpoint may be discharged to home F/u in the office within 2 weeks Admission and Anticipated Discharge Date Admission Date: October 30, 2023 Subjective Patient feels well. Denies pain. Tolerating full liquids, no nausea/vomiting. + flatus and BMs Physical Exam Physical Exam: awake/alert, no distress Gastrointestinal (Abdomen): Inspection/Auscultation: + abdominal surgical incision (c/d/i with dermabond, no signs of infection); abdomen not distended Percussion/Palpation: + abdomen tender (mild awa incisional discomfort to palpation ) and abdomen soft PG Care Time/CCT Total # of Minutes Spent Total Time Spent with Patient: Total time spent is greater than 50% in coordination of care (as documented) at patient's floor/unit and/or counseling patient: Coding Level of Care Code 69191 Post Operative Follow-Up Diagnoses Acute appendicitis K35.30 Acute appendicitis type: with localized peritonitis Appendicitis abscess presence: unspecified whether abscess present Appendicitis gangrene presence: unspecified whether gangrene present Appendicitis perforation presence: unspecified whether perforation present (1) Acute appendicitis Acute appendicitis type: with localized peritonitis Appendicitis abscess presence: unspecified whether abscess present Appendicitis gangrene presence: unspecified whether gangrene present Appendicitis perforation presence: unspecified whether perforation present Qualified Code(s): K35.30 - Acute appendicitis with localized peritonitis, without perforation or gangrene
--- NOTE | 2023-11-01 08:41 | Discharge Summary ---
Date of Service November 01, 2023 Admission HPI Per Admitting Provider Kaiser Villa is a pleasant 58yo male with history of DM, HTN, HLP and GERD presenting with RLQ abdominal pain which began yesterday 10/29/23. He reports the pain steadily worsened throughout the day which prompted him to come to the ER. He denies fever, chills, nausea, vomiting, diarrhea, abdominal distention or rigidity. No additional complaints at this time. Patient found to have elevated WBC count in the ER WBC=14.36. CT of the abdomen and pelvis with contrast revealed findings consistent with acute appendicitis. Patient was taken to the OR and had a laparoscopic appendectomy performed by Dr. Brown under general anesthesia. The surgery was well tolerated with no immediate complications identified and minimal blood loss. No evidence of perforation. Patient was admitted to the medical floor He is currently doing well with no complaints. Did ambulate to the bathroom to urinate without difficulty. Is asking for something to drink. No flatus or BM as of yet. No additional complaints. Principal Diagnosis acute apendicitis Discharge Exam General: patient resting comfortably, NAD, non-toxic in appearance, AA&O x 4 Skin: warm, dry, no rashes or lesions HEENT: NC/AT, PERRL, EOMI Heart: +S1/S2, regular, no m/r/g Lungs: equal air entry bilaterally, no rales/rhonchi/wheezes Abd: +BS, soft, NT/ND, surgical sites well approximated with no bleeding, drainage or dehiscence Ext: warm, 2+ pulses in UE/LE bilaterally, no clubbing/cyanosis or edema, SCDs in place Neuro: nonfocal, patient AA&O x 4, speech intact, no facial droop, moving all extremities on command with equal strength 5/5 Discharge Data Allergies Allergy/AdvReac Type Severity Reaction Status Date / Time gemfibrozil AdvReac Mild rash Verified 10/30/23 18:22 Consultations 10/30/23 18:07 ED Decision to Admit Stat 10/30/23 18:08 Consult General Surgery Stat 10/30/23 23:32 Consult Hospitalist Routine Procedures Performed Operation Date: 10/30/23 19:00 Actual Procedures p Laparoscopic Appendectomy(Not Applicable) - Donte Brown, Ordered Studies 10/30/23 14:19 CT abd pelvis IV con only Stat Hospital Course (1) Acute appendicitis: 58yo male with history of DM, HTN, HLP and GERD presenting with one day of RLQ abdominal pain. Patient found to have acute appendicitis. He had a laparoscopic appendectomy performed on 10/30/23 - well tolerated with no complications. Presently he is doing well with no new complaints. -Admit to medical -Oxycodone as needed for pain -Zofran as needed for nausea -Post-operative instructions per Surgical team -Resume ASA 81mg daily when OK with Surgery cleared for discharge on 10/31 (2) Hypertension: Blood pressure mildly elevated at present -Pain control with Oxycodone as needed -Continue Enalapril 10mg po daily (3) Type 2 diabetes mellitus with obesity: Overall well controlled. Last HgbA1C on 09/01/23 = 5.6 -Hold Metformin and Semaglutide -ISS while inpatient - goal blood sugar 110 - 140 (4) Dyslipidemia: Chronic. Stable -Continue Crestor 20mg po daily -Patient may resume his fenofibrate on discharge for management of his hypertriglyceridemia (5) GERD (gastroesophageal reflux disease): Chronic. Stable -Continue Protonix 40mg po daily (6) Herpetic mag: Chronic. Stable -Patient is on Acyclovir for chronic suppressive therapy -Continue Total Time Total Time Spent Total Time Spent (In Minutes): 32 Discharge Plan Discharge Items Patient Disposition: Home - Self-Care Reason For Visit: ACUTE APPENDICITIS Discharge Diagnosis: Laparoscopic appendectomy Condition on Discharge: Good Activity: Resume your previous activity Lifting: No more than 5 pounds Bathing Comment: you can shower, no pools or bath for 2 weeks Exercise/Sports: Wait until after follow-up appointment Non-emergency contact: Surgeon Call non-emergency contact if: your symptoms worsen, your pain is not controlled, your temperature is above 101.5, your wound has increased redness, your wound has increased drainage and your wound pain has increased Follow-up/Referrals: Donte Brown DO [Physician] - 11/14/23 10:15 am (call office for follow up in 2 weeks ) Brittani Kennedy MD [Primary Care Provider] - Diet: Low Fiber Addtl Attending Provider Instructions: You have surgical glue called dermabond on your surgical site incisions. You may shower with this on and pat dry. No scrubbing. This will tend to come off within a couple of weeks. Do not pick at it. No heavy lifting for 2 weeks. Continue Low fiber diet until cleared by your surgeon Pending Studies at Discharge: Yes Studies:: surgical pathology Stand-Alone Forms: My [facility], Work/School Release, Smoking Cessation Medications and DC Order Prescriptions: Continued metformin 500 mg tablet extended release 24 hr 2,000 mg PO QAM 90 Days Qty: 360 3RF Rx Instructions: 1,000mg in the AM, 1,000mg in the PM acyclovir 200 mg capsule 400 mg PO DAILY Qty: 180 3RF fenofibrate nanocrystallized 48 mg tablet 48 mg PO DAILY Qty: 90 3RF pantoprazole 40 mg tablet,delayed release (DR/EC) 40 mg PO DAILY Qty: 90 3RF rosuvastatin [Crestor] 20 mg tablet 20 mg PO DAILY Qty: 30 2RF enalapril maleate 10 mg tablet 10 mg PO DAILY Qty: 90 3RF Ozempic 1 mg/dose (4 mg/3 mL) pen injector 1 mg subcut Q7D Qty: 4 1RF Rx Instructions: Monday omega-3 fatty acids [Fish Oil Concentrate] 1,000 mg capsule 1,000 mg PO QAM aspirin 81 mg tablet,delayed release (DR/EC) 81 mg PO DAILY multivitamin Tablet 1 tab PO DAILY Discharge Orders: Discharge Order (Routine); Ordered 11/01/23 Ordered By: Garo Rodriguez Admission Data Admit Date/Time: 10/30/23 22:15 Attending Provider: Garo Rodriguez Admit Provider: Donte Brown Primary Care Provider: Brittani Kennedy Other Providers: Sony Roldan; Donte Brown; Sherie Moe Other Interventions: Discharge Summary Assessment (RN) Last Done: 11/01/23 09:55 Coding Level of Care Code 42469 INP/OBS DISCH >30 MIN Diagnoses Acute appendicitis K35.30 Acute appendicitis type: with localized peritonitis Appendicitis abscess presence: unspecified whether abscess present Appendicitis gangrene presence: unspecified whether gangrene present Appendicitis perforation presence: unspecified whether perforation present Primary hypertension I10 Hypertension type: primary hypertension Type 2 diabetes mellitus with obesity E11.69; E66.9 Dyslipidemia E78.5 GERD (gastroesophageal reflux disease) K21.9 Herpetic mag B00.89
[2023-11-01 08:43] LABS: BUN Creatinine Ratio 9.5 (10-20); Calcium 9.2 mg/dl (8.6-10.3); Creatinine Clr Calc Pharmacy 89.9 ml/min; Est GFR (African American) 89.6 ml/min; Est GFR (Non-African American) 77.3 ml/min; Potassium 3.6 mmol/L (3.5-5.1)
== END 2023-11-01 10:29 | disposition home or self-care (01) ==
LOC: ED 13:57 → 3N 18:45 → OR 18:45 → SUATTDRO 22:15
DX: Z88.8 Allergy status to other drugs, medicaments and biological substances; I10 Essential (primary) hypertension; Z79.84 Long term (current) use of oral hypoglycemic drugs; K35.30 Acute appendicitis with localized peritonitis, without perforation or gangrene; Z79.899 Other long term (current) drug therapy; K42.9 Umbilical hernia without obstruction or gangrene; B00.89 Other herpesviral infection; E11.69 Type 2 diabetes mellitus with other specified complication; Z68.33 Body mass index [BMI] 33.0-33.9, adult; E78.5 Hyperlipidemia, unspecified; E66.9 Obesity, unspecified; Z79.82 Long term (current) use of aspirin; Z79.85 Long-term (current) use of injectable non-insulin antidiabetic drugs